=== PATIENT | female | born 1940 | race American Indian/Alaskan Native ===

== ENCOUNTER → 2018-06-29 12:07 | Outpatient (CLI) | payer OTHER, SELFPAY ==
--- NOTE | 2018-06-29 | DI.NM.S_ITS ---
PROCEDURE: NM RAJAT PERF SPECT REST & STR Rest and exercise myocardial perfusion SPECT with gated imaging and ejection fraction RADIOPHARMACEUTICAL: 25.6 mCi Tc-99m sestamibi IV at rest and 26.1 mCi Tc-99m sestamibi IV at peak exercise. A two day-protocol was performed. INDICATIONS: CHEST PAIN TECHNIQUE: Radiopharmaceutical was injected at peak stress test, and also at rest. SPECT images were obtained. SPECT myocardial perfusion images were displayed in short axis, horizontal long axis, and vertical long axis views. Gated images were reviewed using [employer] software. COMPARISON: 10/06/2013. CARDIAC STRESS: A standard Claude treadmill exercise tolerance test was performed by the patient under the supervision of an attending staff. The patient exercised for 5 minutes and 21 seconds reaching 7.0 METs; functional aerobic impairment (DAYA) is -20%. Hemodynamic data: There is normal blood pressure and heart rate response to exercise stress. Patient achieved 91% of maximum predicted heart rate at peak exercise. Symptoms: Patient denied chest pain during exercise. EKG: Baseline ECG shows sinus rhythm with mild (0.5-1mm) horizontal ST depressions in the inferior and anterolateral leads. With treadmill exercise, the ST depressions become moderate (1-2mm) horizontal ST depressions. No ectopy. FINDINGS: Raw data: There is good myocardial labeling by radiotracer. No significant motion artifacts. Left ventricle function: Gated images demonstrate normal left ventricle wall thickening. No segmental wall motion abnormality. No transient ischemic dilation; TID is 0.59 (normal less than 1.3). The left ventricle resting end-diastolic volume is 72 mL. Left ventricle stress ejection fraction is 88%; normal values are above 45%. Myocardial perfusion: There is a fixed basal to mid lateral wall defect that resolves with prone images, suggesting artifact than ischemia or infarction. IMPRESSION: Low risk, normal treadmill nuclear stress test 1) No perfusion evidence of ischemia or infarction. 2) Normal left ventricular size, wall motion, and systolic function (post stress EF 88%). 3) Non-diagnostic ECG due to baseline ST changes. 4) No angina during the stress test. 5) Good exercise tolerance (7.0 METs, DAYA -20%). Target heart rate achieved. Normal blood pressure response to exercise. 6) Compared to the nuclear stress test done 10/06/2013, no significant change. Dictated by: Anson Baxter MD on 06/30/2018 at 15:35 Approved by: Anson Baxter MD on 06/30/2018 at 15:41
--- NOTE | 2018-06-30 13:18 | PM.TREADMILL ---
Cardiac Stress Test Report Referral & Results Date Patient Seen: 06/30/18 Time Patient Seen: 13:18 Requesting provider: Nahed Blanchard Indication: Chest pain/Pressure Rest ECG: Unremarkable Procedure Note: Today following both written and verbal informed consent the patient was exercised according to a standard Claude protocol patient went for a total of 6 min 14 sec achieving a maximum heart rate of 129 maximum systolic blood pressure of 158. This is approximately 7.0 METS. Exercise was terminated at this point because of targets having been met. Patient was also given Cardiolite through a previously started Hep-Lock IV by the nuclear medicine supervisor approximately 1 minute prior to the cessation of exercise. With exercise there was up to about a mm perhaps slightly more initially upsloping then more flat ST segment depression in the inferior leads as well as leads V5 and V6. These persisted into the recovery and became more flat perhaps even downsloping without additional depression Functional aerobic impairment rated at least-20% on the active scale or 120% of normal No dysrhythmias No symptoms Impression: Patient with excellent exercise capacity. There is evidence of ischemia probably as above. Perfusion imaging to be reported separately Please note: Actual ECG tracings can be found in the PACS system.
--- NOTE | 2018-06-30 13:21 | P.PCN_ITS ---
Cardiac Stress Test Report Referral & Results Date Patient Seen: 06/30/18 Time Patient Seen: 13:18 Requesting provider: Nahed Blanchard Indication: Chest pain/Pressure Rest ECG: Unremarkable Procedure Note: Today following both written and verbal informed consent the patient was exercised according to a standard Claude protocol patient went for a total of 6 min 14 sec achieving a maximum heart rate of 129 maximum systolic blood pressure of 158. This is approximately 7.0 METS. Exercise was terminated at this point because of targets having been met. Patient was also given Cardiolite through a previously started Hep-Lock IV by the surveying or spatial science technician approximately 1 minute prior to the cessation of exercise. With exercise there was up to about a mm perhaps slightly more initially upsloping then more flat ST segment depression in the inferior leads as well as leads V5 and V6. These persisted into the recovery and became more flat perhaps even downsloping without additional depression Functional aerobic impairment rated at least-20% on the active scale or 120% of normal No dysrhythmias No symptoms Impression: Patient with excellent exercise capacity. There is evidence of ischemia probably as above. Perfusion imaging to be reported separately Please note: Actual ECG tracings can be found in the PACS system.
== END ==
PROVIDERS: PCP Internal Medicine; Visit Provider Internal Medicine
DX: R07.9 Chest pain, unspecified (principal)
CPT/HCPCS: 78452; 93016; 93017; 93018; A9502

== ENCOUNTER 2024-08-18 09:00 | Outpatient (RCR) | payer OTHER, SELFPAY ==
--- NOTE | 2024-04-27 12:54 | PT.OIE ---
Current Diagnoses Mixed incontinence (04/26/24) Cystocele, midline (04/26/24) Pelvic muscle wasting (04/26/24) Postmenopausal atrophic vaginitis (04/26/24) Visit Care Team Role Provider Type Nahed Zuniga MD Family Provider Non-Staff Primary Care Provider Specialty: Internal Medicine Address: [address] [place] [address], [phone] Email: Wilson Cardenas MD Attending Provider Non-Staff Referring Provider Specialty: Urology Address: [address] [place] [address], [id number] Email: Physical Therapy Initial Evaluation PT-OP-A Visit Information Start: 04/26/24 09:49 Freq: Status: Active Protocol: Document 04/26/24 09:51 [facility] (Rec: 04/26/24 10:07 [facility] [id number]) Out-Patient Physical Therapy Visit Information Visit Information Visit Type Initial Evaluation Visit Start Time 09:45 Visit Stop Time 10:30 Visit Number 1 Evaluation Information Evaluation Date 04/26/24 PT-OP-B Current Condition Start: 04/26/24 09:49 Freq: Status: Active Protocol: Document 04/26/24 09:45 [facility] (Rec: 04/26/24 10:07 [facility] [id number]) Current Condition History of Current Condition Current Complaints pelvic pain History of Current Condition hx of colon cancer in the ascending colon and surgery in 2018 with removal of a section. and symptoms of rectocele started before then. She has had a surgery with mesh for rectocele in 2003 approx 5 months ago she had episodes of constipation lasting approx 4 days and felt as if it affected the mesh. She has discomfort right above the pubic bone when she lays down. Hx of left sided hernia repairs. She also has a scar on the left from a fall when she was 8 where she fell on a log and wood went into her left pelvis. She does feel that when she takes a pill to reduce gas and this also helps her pain. She also chews a tums and this helps. She is a type 6 stool and she goes many times per day. Hx of 2 vaginal deliveries. PT-OP-C Subjective Start: 04/26/24 09:49 Freq: Status: Active Protocol: Document 04/26/24 09:45 [facility] (Rec: 04/27/24 12:31 [facility] [id number]) Patient Questionnaires Pelvic Floor Distress Inventory Questionnaire (PFDI- SF20) Pelvic Floor Score 17 PT-OP-F Manual Assessment Start: 04/26/24 09:49 Freq: Status: Active Protocol: Document 04/26/24 09:45 [facility] (Rec: 04/26/24 13:41 [facility] [id number]) Manual Assessments Soft Tissue Assessment Soft Tissue Mobility Assessment left side abdominal wall over the descending colon and mid suprapubic fascia there is a great amount of scar tissue from previous surgeries. Tenderness is noted over the distal descending colon PT-OP-I Pelvic Floor Start: 04/26/24 09:49 Freq: Status: Active Protocol: Document 04/26/24 09:45 [facility] (Rec: 04/26/24 13:41 [facility] [id number]) Pelvic Floor Assessment Urine Pelvic Floor Surgery Yes Urinary Symptoms Falling Out Feeling/Heavy,Pain Other Urinary Symptoms PELVIC PAIN WHILE LAYING SUPINE AND IRRITATION THAT CAUSES HER TO WAKE TO VOID APPROX five times per night Leakage Size Small Leakage Cause Cough,Exercise,Sneeze Voiding Frequency ten Nocturia five Bowel Bowel Surgery Yes: ascending colon resection Bowel Symptoms Pain Other Bowel Symptoms pain in the lower left abdominal wall when laying supine Bowel Movement Frequency multiple times per day [place] Stool Chart Type 1-7 6 Pelvic Clock Pelvic Clock 12-3 Atrophy Pelvic Clock 3-6 Atrophy Pelvic Clock 6-9 Atrophy Pelvic Clock 9-12 Atrophy Prolapse Cystocele Grade 2 Contraction Ability Voluntary Contraction Moderate Voluntary Relaxation Moderate Manual Muscle Testing Left 3 Manual Muscle Testing Right 3 Manual Muscle Testing Anterior 3 Manual Muscle Testing Posterior 3 Muscle Endurance (Seconds) 6 PT-OP-J Posture/Palpation/Skin Start: 04/26/24 09:49 Freq: Status: Active Protocol: Document 04/26/24 09:45 [facility] (Rec: 04/26/24 13:41 [facility] [id number]) Palpation Assessment Location left lower abdominal wall Palpation Findings Soft Tissue Tightness, Tenderness Palpation Details tenderness over the distal descending colon, scar tissue tightness and decreased fascial mobility of the left lower abdominal wall PT-OP-Q Treatments Start: 04/26/24 09:49 Freq: Status: Active Protocol: Document 04/26/24 09:45 [facility] (Rec: 04/26/24 12:20 [facility] [id number]) Therapeutic Exercises Supine Exercises pelvic floor long holds Side bilateral Reps/Minutes 10 reps holding 10 seconds and relaxing 10 seconds Manual Therapy Treatment Soft Tissue Mobilization MFR over the descending colon Mobilization Type Myofascial Release Intensity/Depth Superficial Body Position Hooklying Comments tenderness left side of descending colon and pt notes afterwards she feels as she needs to have a bowel movement Self-Care/Home Management Treatment Activities Self-Care/Home Management Activities Yenni was educated in ILU self massage over the colon PT-OP-T Assessment and Plan Start: 04/26/24 09:49 Freq: Status: Active Protocol: Document 04/26/24 09:45 [facility] (Rec: 04/26/24 13:41 [facility] [id number]) Physical Therapy Assessment Rehab Potential Rehabilitation Potential Good Evaluation Complexity Number of Personal Factors/Comorbidities 0 Number of Body Systems Impaired 1-2 Clinical Presentation at Evaluation Stable Impairments Impairments Activity Tolerance,Functional Activities,Functional Mobility ,Pain,Soft Tissue Mobility, Strength Other Impairments urinary stress incontinence pelvic pain Goals 4 Impairment Decreased pelvic floor endurance Short Term Goal (STG) Yenni is able to sustain a pelvic floor contraction in supine x 10 seconds STG Duration 5 weeks Hydrometeorological Technician Goal (LTG) Yenni is able to sustain a pelvic floor contraction in standing x 5 seconds LTG Duration 12 weeks 3 Impairment nocturia with pt waking up 5 times per night to void Hydrometeorological Technician Goal (LTG) Yenni is able to decrease the number of voids per night to 2 or less LTG Duration 12 weeks 2 Impairment urinary stress incontinence Short Term Goal (STG) Yenni is educated on a home exercise program for pelvic floor strengtheing STG Duration 4 weeks Hydrometeorological Technician Goal (LTG) Yenni reports a overall reduction of urinary stress incontinence 1 Impairment Yenni reports c/o pelvic pain worse with laying supine and she is unable to sleep comfortably due to this pain and reports pelvic heaviness with standing Mcc Goal (LTG) Yenni reports she has a overall reduction in pelvic pain and sleep is no longer disturbed due to pain LTG Duration 12 weeks Assessment Summary Assessment Yenni is a 84 year old female referred to PT with mixed incontinence and vaginal wall prolapse with cystocele midline. She has chief complaints of lower abdominal discomfort when laying down. She has a history of abdominal surgeries including a resection of the ascending colon due to colon cancer in 2018, rectocele repair with mesh in 2004, and a surgery to remove splinters that were lodged in her left side abdominal wall when she fell as a young child. Yenni reports approximately 5 months ago she suffered a bout of constipation. She found herself straining for bowel movements. This lasted 4 days and after this is when she started noting pelvic discomfort as well as pelvic pain when laying down predominately on the left side of the lower abdominal wall and pelvis as well as above the pubic bone. Yenni reports she did start working on pelvic floor exercises and she does 40 per day. She feels this has been helping and her symptoms are not as severe as they were a few months ago. She does also suffer from nocturia and reports she wakes up 5 times per night to void. With exam there is a great amount of scar tissue over the left lower abdominal wall and over the suprapubic fascia. Tenderness is reproduced when palpating over the descending colon on the left side of the abdominal wall. Yenni is able to properly contract her pelvic floor but does lack the ability to sustain a pelvic floor contraction. She is a good candidate for pelvic floor endurance training and strengthening as well as manual therapy techniques for the abdominal to decrease tenderness. Physical Therapy Plan Frequency and Duration Frequency of Treatment 1x/Week Duration of treatment (weeks) 8 Plan of Care Start Date 04/26/24 Plan of Care End Date 06/21/24 Therapeutic Interventions Therapeutic Interventions Home Exercise Program, Neuromuscular Re-education, Patient/Caregiver Education, Self-Care/Home Management,Soft Tissue Mobilization, Therapeutic Exercises Modalities Biofeedback Next Visit Focus/Plan Next Note Type Treatment Note Next Visit Plan pelvic floor endurance training with EMG biofeedback, manual therapy techniques working on the suprapubic fascia and over the descending colon, stretches for the hips
--- NOTE | 2024-04-27 12:54 | PT.OPPOC ---
Physical, Occupational & Speech Therapy At [facility] Current Diagnoses Mixed incontinence (04/26/24) Cystocele, midline (04/26/24) Pelvic muscle wasting (04/26/24) Postmenopausal atrophic vaginitis (04/26/24) Visit Care Team Role Provider Type Nahed Zuniga MD Family Provider Non-Staff Primary Care Provider Specialty: Internal Medicine Address: [address] [place] [address], [phone] Email: Wilson Cardenas MD Attending Provider Non-Staff Referring Provider Specialty: Urology Address: [address] [place] [address], [phone] Email: Plan Of Care PT-OP-T Assessment and Plan Start: 04/26/24 09:49 Freq: Status: Active Protocol: Document 04/26/24 09:45 [facility] (Rec: 04/26/24 13:41 [facility] [id number]) Physical Therapy Assessment Rehab Potential Rehabilitation Potential Good Evaluation Complexity Number of Personal Factors/Comorbidities 0 Number of Body Systems Impaired 1-2 Clinical Presentation at Evaluation Stable Impairments Impairments Activity Tolerance,Functional Activities,Functional Mobility ,Pain,Soft Tissue Mobility, Strength Other Impairments urinary stress incontinence pelvic pain Goals 4 Impairment Decreased pelvic floor endurance Short Term Goal (STG) Yenni is able to sustain a pelvic floor contraction in supine x 10 seconds STG Duration 5 weeks Long-Term Goal (LTG) Yenni is able to sustain a pelvic floor contraction in standing x 5 seconds LTG Duration 12 weeks 3 Impairment nocturia with pt waking up 5 times per night to void Long-Term Goal (LTG) Yenni is able to decrease the number of voids per night to 2 or less LTG Duration 12 weeks 2 Impairment urinary stress incontinence Short Term Goal (STG) Yenni is educated on a home exercise program for pelvic floor strengthening STG Duration 4 weeks Long-Term Goal (LTG) Yenni reports a overall reduction of urinary stress incontinence 1 Impairment Yenni reports c/o pelvic pain worse with laying supine and she is unable to sleep comfortably due to this pain and reports pelvic heaviness with standing State Archivist Goal (LTG) Yenni reports she has a overall reduction in pelvic pain and sleep is no longer disturbed due to pain LTG Duration 12 weeks Assessment Summary Assessment Yenni is a 84 year old female referred to PT with mixed incontinence and vaginal wall prolapse with cystocele midline. She has chief complaints of lower abdominal discomfort when laying down. She has a history of abdominal surgeries including a resection of the ascending colon due to colon cancer in 2018, rectocele repair with mesh in 2004, and a surgery to remove splinters that were lodged in her left side abdominal wall when she fell as a young child. Yenni reports approximately 5 months ago she suffered a bout of constipation. She found herself straining for bowel movements. This lasted 4 days and after this is when she started noting pelvic discomfort as well as pelvic pain when laying down predominately on the left side of the lower abdominal wall and pelvis as well as above the pubic bone. Yenni reports she did start working on pelvic floor exercises and she does 40 per day. She feels this has been helping and her symptoms are not as severe as they were a few months ago. She does also suffer from nocturia and reports she wakes up 5 times per night to void. With exam there is a great amount of scar tissue over the left lower abdominal wall and over the suprapubic fascia. Tenderness is reproduced when palpating over the descending colon on the left side of the abdominal wall. Yenni is able to properly contract her pelvic floor but does lack the ability to sustain a pelvic floor contraction. She is a good candidate for pelvic floor endurance training and strengthening as well as manual therapy techniques for the abdominal to decrease tenderness. Physical Therapy Plan Frequency and Duration Frequency of Treatment 1x/Week Duration of treatment (weeks) 8 Plan of Care Start Date 04/26/24 Plan of Care End Date 06/21/24 Therapeutic Interventions Therapeutic Interventions Home Exercise Program, Neuromuscular Re-education, Patient/Caregiver Education, Self-Care/Home Management,Soft Tissue Mobilization, Therapeutic Exercises Modalities Biofeedback Next Visit Focus/Plan Next Note Type Treatment Note Next Visit Plan pelvic floor endurance training with EMG biofeedback, manual therapy techniques working on the suprapubic fascia and over the descending colon, stretches for the hips Plan of Care Dates Plan of Care Start Date 04/26/24 Plan of Care End Date 06/21/24 Electronically Signed by: Fifi Blackman, PT 04/27/24 [id number] If you are in agreement with this Plan of Care, please return a signed and dated copy. I have reviewed this Plan of Care and certify that the skilled therapy services above are required to meet the patient?s needs. Physician Signature Date Printed Name and Credentials Clinical Instructor Signature Printed Name and Credentials
--- NOTE | 2024-05-04 12:01 | PT.OTN ---
Current Diagnoses Mixed incontinence (05/04/24) Cystocele, midline (05/04/24) Pelvic muscle wasting (05/04/24) Postmenopausal atrophic vaginitis (05/04/24) Physical Therapy Treatment Note PT-OP-A Visit Information Start: 04/26/24 09:49 Freq: Status: Active Protocol: Document 05/04/24 08:19 [facility] (Rec: 05/04/24 09:03 [facility] [id number]) Out-Patient Physical Therapy Visit Information Visit Information Visit Type Treatment Note Visit Note pt got lost on way here and is 15 min late Visit Start Time 08:30 Visit Stop Time 09:00 Visit Number 2 PT-OP-B Current Condition Start: 04/26/24 09:49 Freq: Status: Active Protocol: Document 04/26/24 09:45 [facility] (Rec: 04/26/24 10:07 [facility] [id number]) Current Condition History of Current Condition Current Complaints pelvic pain History of Current Condition hx of colon cancer in the ascending colon and surgery in 2018 with removal of a section. and symptoms of rectocele started before then. She has had a surgery with mesh for rectocele in 2003 approx 5 months ago she had episodes of constipation lasting approx 4 days and felt as if it affected the mesh. She has discomfort right above the pubic bone when she lays down. Hx of left sided hernia repairs. She also has a scar on the left from a fall when she was 8 where she fell on a log and wood went into her left pelvis. She does feel that when she takes a pill to reduce gas and this also helps her pain. She also chews a tums and this helps. She is a type 6 stool and she goes many times per day. Hx of 2 vaginal deliveries. PT-OP-C Subjective Start: 04/26/24 09:49 Freq: Status: Active Protocol: Document 05/04/24 11:50 [facility] (Rec: 05/04/24 11:53 [facility] [id number]) OP-PT Subjective Patient Comments Patient Comments Yenni reports she is doing better with her pelvic floor strength and hasn't been experiencing the leakage. She still feels the abdominal discomfort more on the left side and especially when laying down. She has been trying the ILU self massage at home Patient Reported Progress Improving PT-OP-F Manual Assessment Start: 04/26/24 09:49 Freq: Status: Active Protocol: Document 04/26/24 09:45 [facility] (Rec: 04/26/24 13:41 [facility] [id number]) Manual Assessments Soft Tissue Assessment Soft Tissue Mobility Assessment left side abdominal wall over the descending colon and mid suprapubic fascia there is a great amount of scar tissue from previous surgeries. Tenderness is noted over the distal descending colon PT-OP-I Pelvic Floor Start: 04/26/24 09:49 Freq: Status: Active Protocol: Document 04/26/24 09:45 [facility] (Rec: 04/26/24 13:41 [facility] [id number]) Pelvic Floor Assessment Urine Pelvic Floor Surgery Yes Urinary Symptoms Falling Out Feeling/Heavy,Pain Other Urinary Symptoms PELVIC PAIN WHILE LAYING SUPINE AND IRRITATION THAT CAUSES HER TO WAKE TO VOID APPROX five times per night Leakage Size Small Leakage Cause Cough,Exercise,Sneeze Voiding Frequency ten Nocturia five Bowel Bowel Surgery Yes: ascending colon resection Bowel Symptoms Pain Other Bowel Symptoms pain in the lower left abdominal wall when laying supine Bowel Movement Frequency multiple times per day [place] Stool Chart Type 1-7 6 Pelvic Clock Pelvic Clock 12-3 Atrophy Pelvic Clock 3-6 Atrophy Pelvic Clock 6-9 Atrophy Pelvic Clock 9-12 Atrophy Prolapse Cystocele Grade 2 Contraction Ability Voluntary Contraction Moderate Voluntary Relaxation Moderate Manual Muscle Testing Left 3 Manual Muscle Testing Right 3 Manual Muscle Testing Anterior 3 Manual Muscle Testing Posterior 3 Muscle Endurance (Seconds) 6 PT-OP-J Posture/Palpation/Skin Start: 04/26/24 09:49 Freq: Status: Active Protocol: Document 04/26/24 09:45 [facility] (Rec: 04/26/24 13:41 [facility] [id number]) Palpation Assessment Location left lower abdominal wall Palpation Findings Soft Tissue Tightness, Tenderness Palpation Details tenderness over the distal descending colon, scar tissue tightness and decreased fascial mobility of the left lower abdominal wall PT-OP-Q Treatments Start: 04/26/24 09:49 Freq: Status: Active Protocol: Document 05/04/24 11:50 [facility] (Rec: 05/04/24 11:53 [facility] [id number]) Therapeutic Exercises Supine Exercises pelvic floor long holds Side bilateral Reps/Minutes 10 reps holding 10 seconds and relaxing 10 seconds Other Exercises sumo squats with hip turning sander operator Other Exercise Name counter top support Reps/Minutes x 10 reps sit-stand with pelvic floor engagement Reps/Minutes x 10 reps Comments cues to engage TA and pelvic floor on the way up standing squats at counter top Reps/Minutes 2 x 10 reps Manual Therapy Treatment Soft Tissue Mobilization scar tissue massage over the central and left abdominal wall Intensity/Depth Moderate Body Position Supine Comments worked on scar tissue massage over the left and central abdominal wall and educated pt in self scar tissue mobilization MFR over the descending colon Mobilization Type Myofascial Release Intensity/Depth Superficial Body Position Hooklying PT-OP-T Assessment and Plan Start: 04/26/24 09:49 Freq: Status: Active Protocol: Document 05/04/24 08:19 [facility] (Rec: 05/04/24 09:03 [facility] [id number]) Physical Therapy Assessment Goals 4 Impairment Decreased pelvic floor endurance Short Term Goal (STG) Yenni is able to sustain a pelvic floor contraction in supine x 10 seconds STG Duration 5 weeks Intermediate Goal (LTG) Yenni is able to sustain a pelvic floor contraction in standing x 5 seconds LTG Duration 12 weeks 3 Impairment nocturia with pt waking up 5 times per night to void Kraft Digester Operator Goal (LTG) Yenni is able to decrease the number of voids per night to 2 or less LTG Duration 12 weeks 2 Impairment urinary stress incontinence Short Term Goal (STG) Yenni is educated on a home exercise program for pelvic floor strengtheing STG Duration 4 weeks Intermediate Goal (LTG) Yenni reports a overall reduction of urinary stress incontinence 1 Impairment Yenni reports c/o pelvic pain worse with laying supine and she is unable to sleep comfortably due to this pain and reports pelvic heaviness with standing Kraft Digester Operator Goal (LTG) Yenni reports she has a overall reduction in pelvic pain and sleep is no longer disturbed due to pain LTG Duration 12 weeks Assessment Summary Assessment Yenni was late to her appt today due to getting lost so we did not get as many things done but I did work on MFR and scar tissue release over the left side of the abdominal wall and over her scar tissue lower left abdominal wall. She has been doing the self ILU massage at home. Leakage has been decreasing. She is still waking up at night approx 5 times as she feels the abdominal discomfort and needs to empty her bladder at night. She would like to progress to dynamic strengthening exercises she can do at home. We started sit-stand and standing squats with hands on the countertop today for a HEP and Yenni did well with these. Physical Therapy Plan Frequency and Duration Frequency of Treatment 1x/Week Duration of treatment (weeks) 8 Plan of Care Start Date 04/26/24 Plan of Care End Date 06/21/24 Therapeutic Interventions Therapeutic Interventions Home Exercise Program, Neuromuscular Re-education, Patient/Caregiver Education, Self-Care/Home Management,Soft Tissue Mobilization, Therapeutic Exercises Modalities Biofeedback Next Visit Focus/Plan Next Note Type Treatment Note Next Visit Plan continue with MFR and scar tissue release techniques over the abdominal wall, pelvic floor strenghtening, hip and core strengthening exercises.
--- NOTE | 2024-05-11 10:28 | PT.OTN ---
Current Diagnoses Mixed incontinence (05/11/24) Cystocele, midline (05/11/24) Pelvic muscle wasting (05/11/24) Postmenopausal atrophic vaginitis (05/11/24) Physical Therapy Treatment Note PT-OP-A Visit Information Start: 04/26/24 09:49 Freq: Status: Active Protocol: Document 05/11/24 08:19 [facility] (Rec: 05/11/24 09:03 [facility] [id number]) Out-Patient Physical Therapy Visit Information Visit Information Visit Type Progress Note Visit Start Time 08:20 Visit Stop Time 09:00 Visit Number 3 Evaluation Information Evaluation Date 04/26/24 PT-OP-B Current Condition Start: 04/26/24 09:49 Freq: Status: Active Protocol: Document 04/26/24 09:45 [facility] (Rec: 04/26/24 10:07 [facility] [id number]) Current Condition History of Current Condition Current Complaints pelvic pain History of Current Condition hx of colon cancer in the ascending colon and surgery in 2018 with removal of a section. and symptoms of rectocele started before then. She has had a surgery with mesh for rectocele in 2003 approx 5 months ago she had episodes of constipation lasting approx 4 days and felt as if it affected the mesh. She has discomfort right above the pubic bone when she lays down. Hx of left sided hernia repairs. She also has a scar on the left from a fall when she was 8 where she fell on a log and wood went into her left pelvis. She does feel that when she takes a pill to reduce gas and this also helps her pain. She also chews a tums and this helps. She is a type 6 stool and she goes many times per day. Hx of 2 vaginal deliveries. PT-OP-C Subjective Start: 04/26/24 09:49 Freq: Status: Active Protocol: Document 05/11/24 08:19 [facility] (Rec: 05/11/24 09:03 [facility] [id number]) OP-PT Subjective Patient Comments Patient Comments pt notes she isn't having as much abdominal pain now, she had one leak this week approx 1/2 teaspoon which is improvement still waking up 5 times per night to void Patient Reported Progress Improving PT-OP-F Manual Assessment Start: 04/26/24 09:49 Freq: Status: Active Protocol: Document 04/26/24 09:45 [facility] (Rec: 04/26/24 13:41 [facility] [id number]) Manual Assessments Soft Tissue Assessment Soft Tissue Mobility Assessment left side abdominal wall over the descending colon and mid suprapubic fascia there is a great amount of scar tissue from previous surgeries. Tenderness is noted over the distal descending colon PT-OP-I Pelvic Floor Start: 04/26/24 09:49 Freq: Status: Active Protocol: Document 04/26/24 09:45 [facility] (Rec: 04/26/24 13:41 [facility] [id number]) Pelvic Floor Assessment Urine Pelvic Floor Surgery Yes Urinary Symptoms Falling Out Feeling/Heavy,Pain Other Urinary Symptoms PELVIC PAIN WHILE LAYING SUPINE AND IRRITATION THAT CAUSES HER TO WAKE TO VOID APPROX five times per night Leakage Size Small Leakage Cause Cough,Exercise,Sneeze Voiding Frequency ten Nocturia five Bowel Bowel Surgery Yes: ascending colon resection Bowel Symptoms Pain Other Bowel Symptoms pain in the lower left abdominal wall when laying supine Bowel Movement Frequency multiple times per day [place] Stool Chart Type 1-7 6 Pelvic Clock Pelvic Clock 12-3 Atrophy Pelvic Clock 3-6 Atrophy Pelvic Clock 6-9 Atrophy Pelvic Clock 9-12 Atrophy Prolapse Cystocele Grade 2 Contraction Ability Voluntary Contraction Moderate Voluntary Relaxation Moderate Manual Muscle Testing Left 3 Manual Muscle Testing Right 3 Manual Muscle Testing Anterior 3 Manual Muscle Testing Posterior 3 Muscle Endurance (Seconds) 6 PT-OP-J Posture/Palpation/Skin Start: 04/26/24 09:49 Freq: Status: Active Protocol: Document 04/26/24 09:45 [facility] (Rec: 04/26/24 13:41 [facility] [id number]) Palpation Assessment Location left lower abdominal wall Palpation Findings Soft Tissue Tightness, Tenderness Palpation Details tenderness over the distal descending colon, scar tissue tightness and decreased fascial mobility of the left lower abdominal wall PT-OP-Q Treatments Start: 04/26/24 09:49 Freq: Status: Active Protocol: Document 05/11/24 08:19 [facility] (Rec: 05/11/24 09:03 [facility] [id number]) Therapeutic Exercises Supine Exercises ball squeeze with bridge Reps/Minutes 2x 10 reps hip ER with theraband Equipment Used level 3 theraband Reps/Minutes 2 x 10 reps pelvic floor long holds Side bilateral Reps/Minutes 10 reps holding 10 seconds and relaxing 10 seconds Other Exercises standing chest stretch Reps/Minutes hold 30 sec each side warrior 1 stretch Reps/Minutes holding 30 sec each side x 2 sumo squats with hip sheet turner Other Exercise Name counter top support Reps/Minutes x 10 reps sit-stand with pelvic floor engagement Reps/Minutes x 10 reps Comments cues to engage TA and pelvic floor on the way up standing squats at counter top Reps/Minutes 2 x 10 reps PT-OP-T Assessment and Plan Start: 04/26/24 09:49 Freq: Status: Active Protocol: Document 05/11/24 08:19 [facility] (Rec: 05/11/24 09:03 [facility] [id number]) Physical Therapy Assessment Goals 4 Impairment Decreased pelvic floor endurance Short Term Goal (STG) Yenni is able to sustain a pelvic floor contraction in supine x 10 seconds goal met STG Duration 5 weeks Shoe Dresser Goal (LTG) Yenni is able to sustain a pelvic floor contraction in standing x 5 seconds working towards goal LTG Duration 12 weeks 3 Impairment nocturia with pt waking up 5 times per night to void Half-Way Goal (LTG) Yenni is able to decrease the number of voids per night to 2 or less no change LTG Duration 12 weeks 2 Impairment urinary stress incontinence Short Term Goal (STG) Yenni is educated on a home exercise program for pelvic floor strengtheing good progress STG Duration 4 weeks Half-Way Goal (LTG) Yenni reports a overall reduction of urinary stress incontinence some progress 1 Impairment Yenni reports c/o pelvic pain worse with laying supine and she is unable to sleep comfortably due to this pain and reports pelvic heaviness with standing Half-Way Goal (LTG) Yenni reports she has a overall reduction in pelvic pain and sleep is no longer disturbed due to pain. Yenni reports this is improving and it is her bladder waking her up more now than pelvic pain at night LTG Duration 12 weeks Progress Towards Goals Progress Towards Goals Progressing Toward Goals Assessment Summary Assessment Yenni is doing well with her exercises in the clinic. 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 I added in warrior 1 with wall support to open up the hip flexors as well as anterior chest stetches as she tends to lean forward which can place pressure on her bladder. Her pelvic pain across the abdominal wall is decreaseing and she wasn't as tender today with MFR techniques. She isn't concerned about the 5 times waking at night and she reports she is able to void every 2.5-3 hours during the day. It may help to educate her on the urge deference technique for night time as I told her 5 times is more than average. She would benefit from continued PT Physical Therapy Plan Frequency and Duration Frequency of Treatment 1x/Week Duration of treatment (weeks) 8 Plan of Care Start Date 04/26/24 Plan of Care End Date 06/21/24 Therapeutic Interventions Therapeutic Interventions Home Exercise Program, Neuromuscular Re-education, Patient/Caregiver Education, Self-Care/Home Management,Soft Tissue Mobilization, Therapeutic Exercises Modalities Biofeedback Next Visit Focus/Plan Next Note Type Treatment Note Next Visit Plan educate Yenni in the urge deference technique and bladder retraining, review exercises next visit and assess abdominal wall discomfort and MFR technqiques over the lower left abdominal wall.
--- NOTE | 2024-05-11 10:29 | PT.OTN ---
Current Diagnoses Mixed incontinence (05/11/24) Cystocele, midline (05/11/24) Pelvic muscle wasting (05/11/24) Postmenopausal atrophic vaginitis (05/11/24) Physical Therapy Treatment Note PT-OP-A Visit Information Start: 04/26/24 09:49 Freq: Status: Active Protocol: Document 05/11/24 08:19 [facility] (Rec: 05/11/24 09:03 [facility] [id number]) Out-Patient Physical Therapy Visit Information Visit Information Visit Type Progress Note Visit Start Time 08:20 Visit Stop Time 09:00 Visit Number 3 Evaluation Information Evaluation Date 04/26/24 PT-OP-B Current Condition Start: 04/26/24 09:49 Freq: Status: Active Protocol: Document 04/26/24 09:45 [facility] (Rec: 04/26/24 10:07 [facility] [id number]) Current Condition History of Current Condition Current Complaints pelvic pain History of Current Condition hx of colon cancer in the ascending colon and surgery in 2018 with removal of a section. and symptoms of rectocele started before then. She has had a surgery with mesh for rectocele in 2003 approx 5 months ago she had episodes of constipation lasting approx 4 days and felt as if it affected the mesh. She has discomfort right above the pubic bone when she lays down. Hx of left sided hernia repairs. She also has a scar on the left from a fall when she was 8 where she fell on a log and wood went into her left pelvis. She does feel that when she takes a pill to reduce gas and this also helps her pain. She also chews a tums and this helps. She is a type 6 stool and she goes many times per day. Hx of 2 vaginal deliveries. PT-OP-C Subjective Start: 04/26/24 09:49 Freq: Status: Active Protocol: Document 05/11/24 08:19 [facility] (Rec: 05/11/24 09:03 [facility] [id number]) OP-PT Subjective Patient Comments Patient Comments pt notes she isn't having as much abdominal pain now, she had one leak this week approx 1/2 teaspoon which is improvement still waking up 5 times per night to void Patient Reported Progress Improving PT-OP-F Manual Assessment Start: 04/26/24 09:49 Freq: Status: Active Protocol: Document 04/26/24 09:45 [facility] (Rec: 04/26/24 13:41 [facility] [id number]) Manual Assessments Soft Tissue Assessment Soft Tissue Mobility Assessment left side abdominal wall over the descending colon and mid suprapubic fascia there is a great amount of scar tissue from previous surgeries. Tenderness is noted over the distal descending colon PT-OP-I Pelvic Floor Start: 04/26/24 09:49 Freq: Status: Active Protocol: Document 04/26/24 09:45 [facility] (Rec: 04/26/24 13:41 [facility] [id number]) Pelvic Floor Assessment Urine Pelvic Floor Surgery Yes Urinary Symptoms Falling Out Feeling/Heavy,Pain Other Urinary Symptoms PELVIC PAIN WHILE LAYING SUPINE AND IRRITATION THAT CAUSES HER TO WAKE TO VOID APPROX five times per night Leakage Size Small Leakage Cause Cough,Exercise,Sneeze Voiding Frequency ten Nocturia five Bowel Bowel Surgery Yes: ascending colon resection Bowel Symptoms Pain Other Bowel Symptoms pain in the lower left abdominal wall when laying supine Bowel Movement Frequency multiple times per day [place] Stool Chart Type 1-7 6 Pelvic Clock Pelvic Clock 12-3 Atrophy Pelvic Clock 3-6 Atrophy Pelvic Clock 6-9 Atrophy Pelvic Clock 9-12 Atrophy Prolapse Cystocele Grade 2 Contraction Ability Voluntary Contraction Moderate Voluntary Relaxation Moderate Manual Muscle Testing Left 3 Manual Muscle Testing Right 3 Manual Muscle Testing Anterior 3 Manual Muscle Testing Posterior 3 Muscle Endurance (Seconds) 6 PT-OP-J Posture/Palpation/Skin Start: 04/26/24 09:49 Freq: Status: Active Protocol: Document 04/26/24 09:45 [facility] (Rec: 04/26/24 13:41 [facility] [id number]) Palpation Assessment Location left lower abdominal wall Palpation Findings Soft Tissue Tightness, Tenderness Palpation Details tenderness over the distal descending colon, scar tissue tightness and decreased fascial mobility of the left lower abdominal wall PT-OP-Q Treatments Start: 04/26/24 09:49 Freq: Status: Active Protocol: Document 05/11/24 08:19 [facility] (Rec: 05/11/24 09:03 [facility] [id number]) Therapeutic Exercises Supine Exercises ball squeeze with bridge Reps/Minutes 2x 10 reps hip ER with theraband Equipment Used level 3 theraband Reps/Minutes 2 x 10 reps pelvic floor long holds Side bilateral Reps/Minutes 10 reps holding 10 seconds and relaxing 10 seconds Other Exercises standing chest stretch Reps/Minutes hold 30 sec each side warrior 1 stretch Reps/Minutes holding 30 sec each side x 2 sumo squats with hip glove turner Other Exercise Name counter top support Reps/Minutes x 10 reps sit-stand with pelvic floor engagement Reps/Minutes x 10 reps Comments cues to engage TA and pelvic floor on the way up standing squats at counter top Reps/Minutes 2 x 10 reps PT-OP-T Assessment and Plan Start: 04/26/24 09:49 Freq: Status: Active Protocol: Document 05/11/24 08:19 [facility] (Rec: 05/11/24 09:03 [facility] [id number]) Physical Therapy Assessment Goals 4 Impairment Decreased pelvic floor endurance Short Term Goal (STG) Yenni is able to sustain a pelvic floor contraction in supine x 10 seconds goal met STG Duration 5 weeks Diamond Selector Goal (LTG) Yenni is able to sustain a pelvic floor contraction in standing x 5 seconds working towards goal LTG Duration 12 weeks 3 Impairment nocturia with pt waking up 5 times per night to void Retirement Goal (LTG) Yenni is able to decrease the number of voids per night to 2 or less no change LTG Duration 12 weeks 2 Impairment urinary stress incontinence Short Term Goal (STG) Yenni is educated on a home exercise program for pelvic floor strengtheing good progress STG Duration 4 weeks Retirement Goal (LTG) Yenni reports a overall reduction of urinary stress incontinence some progress 1 Impairment eYnni reports c/o pelvic pain worse with laying supine and she is unable to sleep comfortably due to this pain and reports pelvic heaviness with standing Retirement Goal (LTG) Yenni reports she has a overall reduction in pelvic pain and sleep is no longer disturbed due to pain. Yenni reports this is improving and it is her bladder waking her up more now than pelvic pain at night LTG Duration 12 weeks Progress Towards Goals Progress Towards Goals Progressing Toward Goals Assessment Summary Assessment Yenni is doing well with her exercises in the clinic. 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 I added in warrior 1 with wall support to open up the hip flexors as well as anterior chest stetches as she tends to lean forward which can place pressure on her bladder. Her pelvic pain across the abdominal wall is decreaseing and she wasn't as tender today with MFR techniques. She isn't concerned about the 5 times waking at night and she reports she is able to void every 2.5-3 hours during the day. It may help to educate her on the urge deference technique for night time as I told her 5 times is more than average. She would benefit from continued PT Physical Therapy Plan Frequency and Duration Frequency of Treatment 1x/Week Duration of treatment (weeks) 8 Plan of Care Start Date 05/11/24 Plan of Care End Date 07/06/24 Therapeutic Interventions Therapeutic Interventions Home Exercise Program, Neuromuscular Re-education, Patient/Caregiver Education, Self-Care/Home Management,Soft Tissue Mobilization, Therapeutic Exercises Modalities Biofeedback Next Visit Focus/Plan Next Note Type Treatment Note Next Visit Plan educate Yenni in the urge deference technique and bladder retraining, review exercises next visit and assess abdominal wall discomfort and MFR technqiques over the lower left abdominal wall.
--- NOTE | 2024-05-11 10:30 | PT.OPPOC ---
Physical, Occupational & Speech Therapy At [facility] Current Diagnoses Mixed incontinence (05/11/24) Cystocele, midline (05/11/24) Pelvic muscle wasting (05/11/24) Postmenopausal atrophic vaginitis (05/11/24) Visit Care Team Role Provider Type Nahed Zuniga MD Family Provider Non-Staff Primary Care Provider Specialty: Internal Medicine Address: [address] [place] [address], [phone] Email: Wilson Cardenas MD Attending Provider Non-Staff Referring Provider Specialty: Urology Address: [address] [place] [address], [id number] Email: Plan Of Care PT-OP-T Assessment and Plan Start: 04/26/24 09:49 Freq: Status: Active Protocol: Document 05/11/24 08:19 [facility] (Rec: 05/11/24 09:03 [facility] [id number]) Physical Therapy Assessment Goals 4 Impairment Decreased pelvic floor endurance Short Term Goal (STG) Yenni is able to sustain a pelvic floor contraction in supine x 10 seconds goal met STG Duration 5 weeks Intermediate Goal (LTG) Yenni is able to sustain a pelvic floor contraction in standing x 5 seconds working towards goal LTG Duration 12 weeks 3 Impairment nocturia with pt waking up 5 times per night to void Intermediate Goal (LTG) Yenni is able to decrease the number of voids per night to 2 or less no change LTG Duration 12 weeks 2 Impairment urinary stress incontinence Short Term Goal (STG) Yenni is educated on a home exercise program for pelvic floor strengtheing good progress STG Duration 4 weeks Intermediate Goal (LTG) Yenni reports a overall reduction of urinary stress incontinence some progress 1 Impairment Yenni reports c/o pelvic pain worse with laying supine and she is unable to sleep comfortably due to this pain and reports pelvic heaviness with standing Sidewalk Repairer Goal (LTG) Yenni reports she has a overall reduction in pelvic pain and sleep is no longer disturbed due to pain. Yenni reports this is improving and it is her bladder waking her up more now than pelvic pain at night LTG Duration 12 weeks Progress Towards Goals Progress Towards Goals Progressing Toward Goals Assessment Summary Assessment Yenni is doing well with her exercises in the clinic. 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 I added in warrior 1 with wall support to open up the hip flexors as well as anterior chest stetches as she tends to lean forward which can place pressure on her bladder. Her pelvic pain across the abdominal wall is decreaseing and she wasn't as tender today with MFR techniques. She isn't concerned about the 5 times waking at night and she reports she is able to void every 2.5-3 hours during the day. It may help to educate her on the urge deference technique for night time as I told her 5 times is more than average. She would benefit from continued PT Physical Therapy Plan Frequency and Duration Frequency of Treatment 1x/Week Duration of treatment (weeks) 8 Plan of Care Start Date 05/11/24 Plan of Care End Date 07/06/24 Therapeutic Interventions Therapeutic Interventions Home Exercise Program, Neuromuscular Re-education, Patient/Caregiver Education, Self-Care/Home Management,Soft Tissue Mobilization, Therapeutic Exercises Modalities Biofeedback Next Visit Focus/Plan Next Note Type Treatment Note Next Visit Plan educate Yenni in the urge deference technique and bladder retraining, review exercises next visit and assess abdominal wall discomfort and MFR technqiques over the lower left abdominal wall. Plan of Care Dates Plan of Care Start Date 05/11/24 Plan of Care End Date 07/06/24 Electronically Signed by: Fifi Blackman, PT 05/11/24 2007 If you are in agreement with this Plan of Care, please return a signed and dated copy. I have reviewed this Plan of Care and certify that the skilled therapy services above are required to meet the patient?s needs. Physician Signature Date Printed Name and Credentials Clinical Instructor Signature Printed Name and Credentials
--- NOTE | 2024-06-27 09:05 | PT.OTN ---
Current Diagnoses Mixed incontinence (06/27/24) Cystocele, midline (06/27/24) Pelvic muscle wasting (06/27/24) Postmenopausal atrophic vaginitis (06/27/24) Physical Therapy Treatment Note PT-OP-A Visit Information Start: 04/26/24 09:49 Freq: Status: Active Protocol: Document 06/27/24 08:18 SP (Rec: 06/27/24 09:07 SP [id number]) Out-Patient Physical Therapy Visit Information Visit Information Visit Type Treatment Note Visit Start Time 08:18 Visit Stop Time 09:05 Visit Number 4 Number of MACHINE CRATER Visits 1 Evaluation Information Evaluation Date 04/26/24 PT-OP-B Current Condition Start: 04/26/24 09:49 Freq: Status: Active Protocol: Document 04/26/24 09:45 [facility] (Rec: 04/26/24 10:07 [facility] [id number]) Current Condition History of Current Condition Current Complaints pelvic pain History of Current Condition hx of colon cancer in the ascending colon and surgery in 2018 with removal of a section. and symptoms of rectocele started before then. She has had a surgery with mesh for rectocele in 2003 approx 5 months ago she had episodes of constipation lasting approx 4 days and felt as if it affected the mesh. She has discomfort right above the pubic bone when she lays down. Hx of left sided hernia repairs. She also has a scar on the left from a fall when she was 8 where she fell on a log and wood went into her left pelvis. She does feel that when she takes a pill to reduce gas and this also helps her pain. She also chews a tums and this helps. She is a type 6 stool and she goes many times per day. Hx of 2 vaginal deliveries. PT-OP-C Subjective Start: 04/26/24 09:49 Freq: Status: Active Protocol: Document 06/27/24 08:18 SP (Rec: 06/27/24 09:07 SP [id number]) OP-PT Subjective Patient Comments Patient Comments Pt reports did have some pain this past week but tends to be when constipated and feeling heavier with her weight. She stated has had limited time in her day to do her exercises. Has performed but not routinely. She reports has dry eye and has to drink through the night but which also causes her to use the bathroom about every hour approx 4 glasses during the night. She gets about 10 hrs of sleep total and can get back to sleep quickly so feels gets quality sleep. Reports drinks approx 12 oz when drink water during day /c 4-6 during day and 3-4 at night . She stop drinking approx 3 pm. Sleeps 9pm-7am. Wake 930-10, 103--11, 1130-12, doesn't drink anymore after 3 am then awakes at 4-430. Has to stand after urinates then sit back down to complete emptying bladder. PT-OP-F Manual Assessment Start: 04/26/24 09:49 Freq: Status: Active Protocol: Document 04/26/24 09:45 [facility] (Rec: 04/26/24 13:41 [facility] [id number]) Manual Assessments Soft Tissue Assessment Soft Tissue Mobility Assessment left side abdominal wall over the descending colon and mid suprapubic fascia there is a great amount of scar tissue from previous surgeries. Tenderness is noted over the distal descending colon PT-OP-I Pelvic Floor Start: 04/26/24 09:49 Freq: Status: Active Protocol: Document 04/26/24 09:45 [facility] (Rec: 04/26/24 13:41 [facility] [id number]) Pelvic Floor Assessment Urine Pelvic Floor Surgery Yes Urinary Symptoms Falling Out Feeling/Heavy,Pain Other Urinary Symptoms PELVIC PAIN WHILE LAYING SUPINE AND IRRITATION THAT CAUSES HER TO WAKE TO VOID APPROX five times per night Leakage Size Small Leakage Cause Cough,Exercise,Sneeze Voiding Frequency ten Nocturia five Bowel Bowel Surgery Yes: ascending colon resection Bowel Symptoms Pain Other Bowel Symptoms pain in the lower left abdominal wall when laying supine Bowel Movement Frequency multiple times per day [place] Stool Chart Type 1-7 6 Pelvic Clock Pelvic Clock 12-3 Atrophy Pelvic Clock 3-6 Atrophy Pelvic Clock 6-9 Atrophy Pelvic Clock 9-12 Atrophy Prolapse Cystocele Grade 2 Contraction Ability Voluntary Contraction Moderate Voluntary Relaxation Moderate Manual Muscle Testing Left 3 Manual Muscle Testing Right 3 Manual Muscle Testing Anterior 3 Manual Muscle Testing Posterior 3 Muscle Endurance (Seconds) 6 PT-OP-J Posture/Palpation/Skin Start: 04/26/24 09:49 Freq: Status: Active Protocol: Document 04/26/24 09:45 [facility] (Rec: 04/26/24 13:41 [facility] [id number]) Palpation Assessment Location left lower abdominal wall Palpation Findings Soft Tissue Tightness, Tenderness Palpation Details tenderness over the distal descending colon, scar tissue tightness and decreased fascial mobility of the left lower abdominal wall PT-OP-Q Treatments Start: 04/26/24 09:49 Freq: Status: Active Protocol: Document 06/27/24 08:18 [facility] (Rec: 06/27/24 09:07 SP [id number]) Therapeutic Exercises Other Exercises Bladder training Other Exercise Name provided Reps/Minutes 20 min bladder training Comments Pt understanding Therapeutic Activity Therapeutic Activity Bladder training Name instructed urgency trainingand provided HO Reps/Minutes 20 min Comments Ed bladder training and completed bladder diary for urine output and fluid intake for baseline. Self-Care/Home Management Treatment Education Other Education 27 min:Time spent suggestion use of eye mask sleeping and see if support less dry eye and maybe not need to drink so often 20 oz each time during night (challenges bladder), limit water intake utilize Sustain droplets from physician for lubricating eyes , could help support bladder training and quality sleep. Discussed importance of HEP ( not performed) given previous txs to help support pelvic floor strengthening to allow decreased urine incontinence. Discussed she is drinking about 20 oz water, no coffee/ tea and gets up 4 x night early on to drink water due to dry eye discomfort. PRovided bladder diary to check baseline . PT-OP-T Assessment and Plan Start: 04/26/24 09:49 Freq: Status: Active Protocol: Document 06/27/24 08:18 [facility] (Rec: 06/27/24 09:07 SP [id number]) Physical Therapy Assessment Goals 4 Impairment Decreased pelvic floor endurance Short Term Goal (STG) Yenni is able to sustain a pelvic floor contraction in supine x 10 seconds goal met STG Duration 5 weeks Nursing Home Goal (LTG) Yenni is able to sustain a pelvic floor contraction in standing x 5 seconds 06/27/24: working toward goal: Pt able hold 3 sec. LTG Duration 12 weeks slow progression 06/27 3 Impairment nocturia with pt waking up 5 times per night to void Second Helper Goal (LTG) Yenni is able to decrease the number of voids per night to 2 or less 06/27/24: no change still 5 times per night to drink water to support dry eye and thus need use the bathroom. LTG Duration 12 weeks no progression 2 Impairment urinary stress incontinence Short Term Goal (STG) Yenni is educated on a home exercise program for pelvic floor strengthe- ing 06/27/24: pt stated hasn't beening performing her HEP as STG Duration 4 weeks Nursing Home Goal (LTG) Yenni reports a overall reduction of urinary stress incontinence 06/27/24: not see significant reduction, better understanding ex help support strength, instructed bladder diary and use eye mask an see if can get up less and progress decreased urgency. LTG Duration low progress 06/27/24 1 Impairment Yenni reports c/o pelvic pain worse with laying supine and she is unable to sleep comfortably due to this pain and reports pelvic heaviness with standing Second Helper Goal (LTG) Yenni reports she has a overall reduction in pelvic pain and sleep is no longer disturbed due to pain. 06/27/24Yenni reports this is improving and it is her bladder waking her up more now than pelvic pain at night LTG Duration 12 weeks progressing 06/27/24 Assessment Summary Assessment Pt good understanding of importance of HEP as directed reps/ sets/ time day/week to support pelvic floor strenghtening, limit drinking 3 hrs before bed time and utilize eye mask and Sustain droplets for eyes and hoping can help make a change in # times gets up at night. Provided bladder diary and bladder training HO with good understanding to support decrease urgency and incontinence changes, performance of HEP verbalized importance to see changes. Pt pleased with new hand outs and how will help support her with incontinence. Will bring back next tx. PT to update POC before next tx. Physical Therapy Plan Frequency and Duration Frequency of Treatment 1x/Week Duration of treatment (weeks) 8 Plan of Care Start Date 05/11/24 Plan of Care End Date 07/06/24 Therapeutic Interventions Therapeutic Interventions Home Exercise Program, Neuromuscular Re-education, Patient/Caregiver Education, Self-Care/Home Management,Soft Tissue Mobilization, Therapeutic Exercises Modalities Biofeedback Next Visit Focus/Plan Next Note Type Treatment Note Next Visit Plan Update POC before next t. Check on Yenni in the urge deference technique and bladder retraining per hand out, review exercises next visit. Future PT tx: Assess abdominal wall discomfort and MFR technqiques over the lower left abdominal wall.
--- NOTE | 2024-06-30 17:38 | PT.OPPN ---
Current Diagnoses Mixed incontinence (06/27/24) Cystocele, midline (06/27/24) Pelvic muscle wasting (06/27/24) Postmenopausal atrophic vaginitis (06/27/24) Physical Therapy Progress Note PT-OP-A Visit Information Start: 04/26/24 09:49 Freq: Status: Active Protocol: Document 06/27/24 08:18 [facility] (Rec: 06/27/24 09:07 SP [id number]) Out-Patient Physical Therapy Visit Information Visit Information Visit Type Treatment Note Visit Start Time 08:18 Visit Stop Time 09:05 Visit Number 4 Number of PORT PURSER Visits 1 Evaluation Information Evaluation Date 04/26/24 PT-OP-B Current Condition Start: 04/26/24 09:49 Freq: Status: Active Protocol: Document 04/26/24 09:45 [facility] (Rec: 04/26/24 10:07 [facility] [id number]) Current Condition History of Current Condition Current Complaints pelvic pain History of Current Condition hx of colon cancer in the ascending colon and surgery in 2018 with removal of a section. and symptoms of rectocele started before then. She has had a surgery with mesh for rectocele in 2003 approx 5 months ago she had episodes of constipation lasting approx 4 days and felt as if it affected the mesh. She has discomfort right above the pubic bone when she lays down. Hx of left sided hernia repairs. She also has a scar on the left from a fall when she was 8 where she fell on a log and wood went into her left pelvis. She does feel that when she takes a pill to reduce gas and this also helps her pain. She also chews a tums and this helps. She is a type 6 stool and she goes many times per day. Hx of 2 vaginal deliveries. PT-OP-C Subjective Start: 04/26/24 09:49 Freq: Status: Active Protocol: Document 06/27/24 08:18 SP (Rec: 06/27/24 09:07 SP [id number]) OP-PT Subjective Patient Comments Patient Comments Pt reports did have some pain this past week but tends to be when constipated and feeling heavier with her weight. She stated has had limited time in her day to do her exercises. Has performed but not routinely. She reports has dry eye and has to drink through the night but which also causes her to use the bathroom about every hour approx 4 glasses during the night. She gets about 10 hrs of sleep total and can get back to sleep quickly so feels gets quality sleep. Reports drinks approx 12 oz when drink water during day /c 4-6 during day and 3-4 at night . She stop drinking approx 3 pm. Sleeps 9pm-7am. Wake 930-10, 103--11, 1130-12, doesn't drink anymore after 3 am then awakes at 4-430. Has to stand after urinates then sit back down to complete emptying bladder. PT-OP-F Manual Assessment Start: 04/26/24 09:49 Freq: Status: Active Protocol: Document 04/26/24 09:45 [facility] (Rec: 04/26/24 13:41 [facility] [id number]) Manual Assessments Soft Tissue Assessment Soft Tissue Mobility Assessment left side abdominal wall over the descending colon and mid suprapubic fascia there is a great amount of scar tissue from previous surgeries. Tenderness is noted over the distal descending colon PT-OP-I Pelvic Floor Start: 04/26/24 09:49 Freq: Status: Active Protocol: Document 04/26/24 09:45 [facility] (Rec: 04/26/24 13:41 [facility] [id number]) Pelvic Floor Assessment Urine Pelvic Floor Surgery Yes Urinary Symptoms Falling Out Feeling/Heavy,Pain Other Urinary Symptoms PELVIC PAIN WHILE LAYING SUPINE AND IRRITATION THAT CAUSES HER TO WAKE TO VOID APPROX five times per night Leakage Size Small Leakage Cause Cough,Exercise,Sneeze Voiding Frequency ten Nocturia five Bowel Bowel Surgery Yes: ascending colon resection Bowel Symptoms Pain Other Bowel Symptoms pain in the lower left abdominal wall when laying supine Bowel Movement Frequency multiple times per day [place] Stool Chart Type 1-7 6 Pelvic Clock Pelvic Clock 12-3 Atrophy Pelvic Clock 3-6 Atrophy Pelvic Clock 6-9 Atrophy Pelvic Clock 9-12 Atrophy Prolapse Cystocele Grade 2 Contraction Ability Voluntary Contraction Moderate Voluntary Relaxation Moderate Manual Muscle Testing Left 3 Manual Muscle Testing Right 3 Manual Muscle Testing Anterior 3 Manual Muscle Testing Posterior 3 Muscle Endurance (Seconds) 6 PT-OP-J Posture/Palpation/Skin Start: 04/26/24 09:49 Freq: Status: Active Protocol: Document 04/26/24 09:45 [facility] (Rec: 04/26/24 13:41 [facility] [id number]) Palpation Assessment Location left lower abdominal wall Palpation Findings Soft Tissue Tightness, Tenderness Palpation Details tenderness over the distal descending colon, scar tissue tightness and decreased fascial mobility of the left lower abdominal wall PT-OP-T Assessment and Plan Start: 04/26/24 09:49 Freq: Status: Active Protocol: Document 06/30/24 17:37 [facility] (Rec: 06/30/24 17:38 [facility] [id number]) Physical Therapy Assessment Goals 4 Impairment Decreased pelvic floor endurance Short Term Goal (STG) Yenni is able to sustain a pelvic floor contraction in supine x 10 seconds goal met STG Duration 5 weeks [facility] Goal (LTG) Yenni is able to sustain a pelvic floor contraction in standing x 5 seconds 06/27/24: working toward goal: Pt able hold 3 sec. LTG Duration 12 weeks slow progression 06/27 3 Impairment nocturia with pt waking up 5 times per night to void [facility] Goal (LTG) Yenni is able to decrease the number of voids per night to 2 or less 06/27/24: no change still 5 times per night to drink water to support dry eye and thus need use the bathroom. LTG Duration 12 weeks no progression 2 Impairment urinary stress incontinence Short Term Goal (STG) Yenni is educated on a home exercise program for pelvic floor strengthe- ing 06/27/24: pt stated hasn't beening performing her HEP as STG Duration 4 weeks Paper Rewinder Goal (LTG) Yenni reports a overall reduction of urinary stress incontinence 06/27/24: not see significant reduction, better understanding ex help support strength, instructed bladder diary and use eye mask an see if can get up less and progress decreased urgency. LTG Duration low progress 06/27/24 1 Impairment Yenni reports c/o pelvic pain worse with laying supine and she is unable to sleep comfortably due to this pain and reports pelvic heaviness with standing [facility] Goal (LTG) Yenni reports she has a overall reduction in pelvic pain and sleep is no longer disturbed due to pain. 06/27/24Yenni reports this is improving and it is her bladder waking her up more now than pelvic pain at night LTG Duration 12 weeks progressing 06/27/24 Assessment Summary Assessment Pt good understanding of importance of HEP as directed reps/ sets/ time day/week to support pelvic floor strenghtening, limit drinking 3 hrs before bed time and utilize eye mask and Sustain droplets for eyes and hoping can help make a change in # times gets up at night. Provided bladder diary and bladder training HO with good understanding to support decrease urgency and incontinence changes, performance of HEP verbalized importance to see changes. Pt pleased with new hand outs and how will help support her with incontinence. Will bring back next visit Yenni would benefit from continued PT Physical Therapy Plan Frequency and Duration Frequency of Treatment 1x/Week Duration of treatment (weeks) 8 Plan of Care Start Date 06/27/24 Plan of Care End Date 08/29/24 Therapeutic Interventions Therapeutic Interventions Home Exercise Program, Neuromuscular Re-education, Patient/Caregiver Education, Self-Care/Home Management,Soft Tissue Mobilization, Therapeutic Exercises Modalities Biofeedback Next Visit Focus/Plan Next Note Type Treatment Note Next Visit Plan Update POC before next t. Check on Yenni in the urge deference technique and bladder retraining per hand out, review exercises next visit. Future PT tx: Assess abdominal wall discomfort and MFR technqiques over the lower left abdominal wall.
--- NOTE | 2024-06-30 17:39 | PT.OPPOC ---
Physical, Occupational & Speech Therapy At [facility] Current Diagnoses Mixed incontinence (06/27/24) Cystocele, midline (06/27/24) Pelvic muscle wasting (06/27/24) Postmenopausal atrophic vaginitis (06/27/24) Visit Care Team Role Provider Type Nahed Zuniga MD Family Provider Non-Staff Primary Care Provider Specialty: Internal Medicine Address: [address] [place] [address], [phone] Email: Wilson Cardenas MD Attending Provider Non-Staff Referring Provider Specialty: Urology Address: [address] [place] [address], [id number] Email: Plan Of Care PT-OP-B Current Condition Start: 04/26/24 09:49 Freq: Status: Active Protocol: Document 04/26/24 09:45 [facility] (Rec: 04/26/24 10:07 [facility] [id number]) Current Condition History of Current Condition Current Complaints pelvic pain History of Current Condition hx of colon cancer in the ascending colon and surgery in 2018 with removal of a section. and symptoms of rectocele started before then. She has had a surgery with mesh for rectocele in 2003 approx 5 months ago she had episodes of constipation lasting approx 4 days and felt as if it affected the mesh. She has discomfort right above the pubic bone when she lays down. Hx of left sided hernia repairs. She also has a scar on the left from a fall when she was 8 where she fell on a log and wood went into her left pelvis. She does feel that when she takes a pill to reduce gas and this also helps her pain. She also chews a tums and this helps. She is a type 6 stool and she goes many times per day. Hx of 2 vaginal deliveries. PT-OP-T Assessment and Plan Start: 04/26/24 09:49 Freq: Status: Active Protocol: Document 06/30/24 17:37 [facility] (Rec: 06/30/24 17:38 [facility] [id number]) Physical Therapy Assessment Goals 4 Impairment Decreased pelvic floor endurance Short Term Goal (STG) Yenni is able to sustain a pelvic floor contraction in supine x 10 seconds goal met STG Duration 5 weeks Custodial Goal (LTG) Yenni is able to sustain a pelvic floor contraction in standing x 5 seconds 06/27/24: working toward goal: Pt able hold 3 sec. LTG Duration 12 weeks slow progression 06/27 3 Impairment nocturia with pt waking up 5 times per night to void Bicycle Fitter Goal (LTG) Yenni is able to decrease the number of voids per night to 2 or less 06/27/24: no change still 5 times per night to drink water to support dry eye and thus need use the bathroom. LTG Duration 12 weeks no progression 2 Impairment urinary stress incontinence Short Term Goal (STG) Yenni is educated on a home exercise program for pelvic floor strengthe- ing 06/27/24: pt stated hasn't been performing her HEP as STG Duration 4 weeks Bicycle Fitter Goal (LTG) Yenni reports a overall reduction of urinary stress incontinence 06/27/24: not see significant reduction, better understanding ex help support strength, instructed bladder diary and use eye mask an see if can get up less and progress decreased urgency. LTG Duration low progress 06/27/24 1 Impairment Yenni reports c/o pelvic pain worse with laying supine and she is unable to sleep comfortably due to this pain and reports pelvic heaviness with standing Bicycle Fitter Goal (LTG) Yenni reports she has a overall reduction in pelvic pain and sleep is no longer disturbed due to pain. 06/27/24Yenni reports this is improving and it is her bladder waking her up more now than pelvic pain at night LTG Duration 12 weeks progressing 06/27/24 Assessment Summary Assessment Pt good understanding of importance of HEP as directed reps/ sets/ time day/week to support pelvic floor strengthening, limit drinking 3 hrs before bed time and utilize eye mask and Sustain droplets for eyes and hoping can help make a change in # times gets up at night. Provided bladder diary and bladder training HO with good understanding to support decrease urgency and incontinence changes, performance of HEP verbalized importance to see changes. Pt pleased with new hand outs and how will help support her with incontinence. Will bring back next visit Yenni would benefit from continued PT Physical Therapy Plan Frequency and Duration Frequency of Treatment 1x/Week Duration of treatment (weeks) 8 Plan of Care Start Date 06/27/24 Plan of Care End Date 08/29/24 Therapeutic Interventions Therapeutic Interventions Home Exercise Program, Neuromuscular Re-education, Patient/Caregiver Education, Self-Care/Home Management,Soft Tissue Mobilization, Therapeutic Exercises Modalities Biofeedback Next Visit Focus/Plan Next Note Type Treatment Note Next Visit Plan Update POC before next t. Check on Yenni in the urge deference technique and bladder retraining per hand out, review exercises next visit. Future PT tx: Assess abdominal wall discomfort and MFR techniques over the lower left abdominal wall. Plan of Care Dates Plan of Care Start Date 06/27/24 Plan of Care End Date 08/29/24 Electronically Signed by: Fifi Blackman, PT 06/30/24 0522 If you are in agreement with this Plan of Care, please return a signed and dated copy. I have reviewed this Plan of Care and certify that the skilled therapy services above are required to meet the patient?s needs. Physician Signature Date Printed Name and Credentials Clinical Instructor Signature Printed Name and Credentials
--- NOTE | 2024-07-11 07:46 | PT-OP ANOTE ---
Pt did not show for today's appt. PIPELINE INTEGRITY ENGINEER called regarding importance of attendance to progress. Suggested calling our office back and scheduling tomorrow 07/12 appt with PT, currently 815 and 1030 am openings. or next available with PIPELINE INTEGRITY ENGINEER Julita or PT Fifi as POC 1x/wk. Reminded next scheduled appt 07/21 with PT, is the last scheduled appt.
--- NOTE | 2024-07-11 08:15 | PT.OTN ---
Current Diagnoses Mixed incontinence (07/11/24) Cystocele, midline (07/11/24) Pelvic muscle wasting (07/11/24) Postmenopausal atrophic vaginitis (07/11/24) Physical Therapy Treatment Note PT-OP-A Visit Information Start: 04/26/24 09:49 Freq: Status: Active Protocol: Document 07/11/24 07:53 [facility] (Rec: 07/11/24 08:18 [facility] [id number]) Out-Patient Physical Therapy Visit Information Visit Information Visit Type Treatment Note Visit Note Pt 23 min late for appt, thought appt was at 8am. Visit Start Time 07:53 Visit Stop Time 08:15 Visit Number 5 Number of NITROGLYCERIN SEPARATOR OPERATOR Visits 2 Evaluation Information Evaluation Date 04/26/24 PT-OP-B Current Condition Start: 04/26/24 09:49 Freq: Status: Active Protocol: Document 04/26/24 09:45 [facility] (Rec: 04/26/24 10:07 [facility] [id number]) Current Condition History of Current Condition Current Complaints pelvic pain History of Current Condition hx of colon cancer in the ascending colon and surgery in 2018 with removal of a section. and symptoms of rectocele started before then. She has had a surgery with mesh for rectocele in 2003 approx 5 months ago she had episodes of constipation lasting approx 4 days and felt as if it affected the mesh. She has discomfort right above the pubic bone when she lays down. Hx of left sided hernia repairs. She also has a scar on the left from a fall when she was 8 where she fell on a log and wood went into her left pelvis. She does feel that when she takes a pill to reduce gas and this also helps her pain. She also chews a tums and this helps. She is a type 6 stool and she goes many times per day. Hx of 2 vaginal deliveries. PT-OP-C Subjective Start: 04/26/24 09:49 Freq: Status: Active Protocol: Document 07/11/24 07:53 SP (Rec: 07/11/24 08:18 [facility] [id number]) OP-PT Subjective Patient Comments Patient Comments Pt reports still having alot pelvic pain but thinks is gas related. Has been doing self abdominal massage as instructed. She stated her is sick and helping him so hasn't been doing ex but wants to go over today to be sure will be doing correctly. She also stated has a Herpes Outbreak and may also be contributing to pelvic pain. She said hasn't started the bladder diary due to not sure what time to start so thought would ask today. Has a toilet measuring hat can use to calculate urine output. Pt reported wearing the eye mask at night has noticed able sleep longer by 1 hr but still 3-4 x/night. PT-OP-F Manual Assessment Start: 04/26/24 09:49 Freq: Status: Active Protocol: Document 04/26/24 09:45 [facility] (Rec: 04/26/24 13:41 [facility] [id number]) Manual Assessments Soft Tissue Assessment Soft Tissue Mobility Assessment left side abdominal wall over the descending colon and mid suprapubic fascia there is a great amount of scar tissue from previous surgeries. Tenderness is noted over the distal descending colon PT-OP-I Pelvic Floor Start: 04/26/24 09:49 Freq: Status: Active Protocol: Document 04/26/24 09:45 [facility] (Rec: 04/26/24 13:41 [facility] [id number]) Pelvic Floor Assessment Urine Pelvic Floor Surgery Yes Urinary Symptoms Falling Out Feeling/Heavy,Pain Other Urinary Symptoms PELVIC PAIN WHILE LAYING SUPINE AND IRRITATION THAT CAUSES HER TO WAKE TO VOID APPROX five times per night Leakage Size Small Leakage Cause Cough,Exercise,Sneeze Voiding Frequency ten Nocturia five Bowel Bowel Surgery Yes: ascending colon resection Bowel Symptoms Pain Other Bowel Symptoms pain in the lower left abdominal wall when laying supine Bowel Movement Frequency multiple times per day [place] Stool Chart Type 1-7 6 Pelvic Clock Pelvic Clock 12-3 Atrophy Pelvic Clock 3-6 Atrophy Pelvic Clock 6-9 Atrophy Pelvic Clock 9-12 Atrophy Prolapse Cystocele Grade 2 Contraction Ability Voluntary Contraction Moderate Voluntary Relaxation Moderate Manual Muscle Testing Left 3 Manual Muscle Testing Right 3 Manual Muscle Testing Anterior 3 Manual Muscle Testing Posterior 3 Muscle Endurance (Seconds) 6 PT-OP-J Posture/Palpation/Skin Start: 04/26/24 09:49 Freq: Status: Active Protocol: Document 04/26/24 09:45 [facility] (Rec: 04/26/24 13:41 [facility] [id number]) Palpation Assessment Location left lower abdominal wall Palpation Findings Soft Tissue Tightness, Tenderness Palpation Details tenderness over the distal descending colon, scar tissue tightness and decreased fascial mobility of the left lower abdominal wall PT-OP-Q Treatments Start: 04/26/24 09:49 Freq: Status: Active Protocol: Document 07/11/24 07:53 SP (Rec: 07/11/24 08:18 SP [id number]) Therapeutic Exercises Supine Exercises ball squeeze with bridge Equipment Used small blue ball between knees Reps/Minutes 10 reps (2x10 home) Comments cued feet closer inhibit HS cramp, slow pacing /c PF draw in <=30% hip ER with theraband Equipment Used level 3 theraband Reps/Minutes 10 reps (2x10 home) Comments cued gentle PF draw in during hip ER pelvic floor long holds Side bilateral Reps/Minutes 10 reps holding 10 seconds <> relaxing 10 seconds Comments cued gentle PF draw in sucking water up a straw- improved no LE/PPT recru Other Exercises standing chest stretch Equipment Used doorway Reps/Minutes hold 30 sec each side warrior 1 stretch Reps/Minutes holding 30 sec each side x 2 Comments cued near countertop for bal support if needed sumo squats with hip returner Other Exercise Name counter top support Reps/Minutes x 10 reps Comments cued gentle PF draw in coming to standing sit-stand with pelvic floor engagement Reps/Minutes x 10 reps Comments cues to engage TA and pelvic floor on the way up Self-Care/Home Management Treatment Education Patient Education Home Exercise Program Other Education 2 min: Bladder diary, Discussed pick a time to start then log when eat, drink how much, urine output measure use hat and seconds long takes to empty bladder as well as if having urgency what grade. DIscussed not drinking water when wakes up, just utilize Sustain drops in eye to lubricate and see if helps lessen frequency of waking up. Reviewed HEP previously HEP with ed for importance of peforming to allow pelvic floor strengthening. PT-OP-T Assessment and Plan Start: 04/26/24 09:49 Freq: Status: Active Protocol: Document 07/11/24 07:53 SP (Rec: 07/11/24 08:18 SP [id number]) Physical Therapy Assessment Goals 4 Impairment Decreased pelvic floor endurance Short Term Goal (STG) Yenni is able to sustain a pelvic floor contraction in supine x 10 seconds goal met STG Duration 5 weeks Waste Recycler Goal (LTG) Yenni is able to sustain a pelvic floor contraction in standing x 5 seconds 06/27/24: working toward goal: Pt able hold 3 sec. LTG Duration 12 weeks slow progression 06/27 3 Impairment nocturia with pt waking up 5 times per night to void Residential Goal (LTG) Yenni is able to decrease the number of voids per night to 2 or less 06/27/24: no change still 5 times per night to drink water to support dry eye and thus need use the bathroom. LTG Duration 12 weeks no progression 2 Impairment urinary stress incontinence Short Term Goal (STG) Yenni is educated on a home exercise program for pelvic floor strengthe- ing 06/27/24: pt stated hasn't beening performing her HEP as STG Duration 4 weeks Residential Goal (LTG) Yenni reports a overall reduction of urinary stress incontinence 06/27/24: not see significant reduction, better understanding ex help support strength, instructed bladder diary and use eye mask an see if can get up less and progress decreased urgency. LTG Duration low progress 06/27/24 1 Impairment Yenni reports c/o pelvic pain worse with laying supine and she is unable to sleep comfortably due to this pain and reports pelvic heaviness with standing Waste Recycler Goal (LTG) Yenni reports she has a overall reduction in pelvic pain and sleep is no longer disturbed due to pain. 06/27/24Yenni reports this is improving and it is her bladder waking her up more now than pelvic pain at night LTG Duration 12 weeks progressing 06/27/24 Assessment Summary Assessment Pt 23 min late for appt. Tx focused on instruction and proper logging of bladder diary and performance HEP review with education importance if continue to perform home for carryover support reduction urgency incontinence. Suggested decreased liquid intake when wakes up during the night, just apply eye drops Dr prescribed and use eye mask to support eye lubrication. Pt still waking up 3-4x/night but 1 hr longer between. Physical Therapy Plan Frequency and Duration Frequency of Treatment 1x/Week Duration of treatment (weeks) 8 Plan of Care Start Date 06/27/24 Plan of Care End Date 08/29/24 Therapeutic Interventions Therapeutic Interventions Home Exercise Program, Neuromuscular Re-education, Patient/Caregiver Education, Self-Care/Home Management,Soft Tissue Mobilization, Therapeutic Exercises Modalities Biofeedback Next Visit Focus/Plan Next Note Type Treatment Note Next Visit Plan Check on Yenni pelvic pain, urge deference technique and bladder retraining per hand out brings in, review exercises. Future PT tx: Assess abdominal wall discomfort and MFR technqiques over the lower left abdominal wall.
--- NOTE | 2024-07-21 16:26 | PT.OTN ---
Current Diagnoses Mixed incontinence (07/21/24) Cystocele, midline (07/21/24) Pelvic muscle wasting (07/21/24) Postmenopausal atrophic vaginitis (07/21/24) Physical Therapy Treatment Note PT-OP-A Visit Information Start: 04/26/24 09:49 Freq: Status: Active Protocol: Document 07/21/24 08:16 [facility] (Rec: 07/21/24 09:02 [facility] [id number]) Out-Patient Physical Therapy Visit Information Visit Information Visit Type Treatment Note Visit Start Time 08:15 Visit Stop Time 09:00 Visit Number 6 Number of PROFESSIONAL HOUSING CONSULTANT Visits 0 PT-OP-B Current Condition Start: 04/26/24 09:49 Freq: Status: Active Protocol: Document 04/26/24 09:45 [facility] (Rec: 04/26/24 10:07 [facility] [id number]) Current Condition History of Current Condition Current Complaints pelvic pain History of Current Condition hx of colon cancer in the ascending colon and surgery in 2018 with removal of a section. and symptoms of rectocele started before then. She has had a surgery with mesh for rectocele in 2003 approx 5 months ago she had episodes of constipation lasting approx 4 days and felt as if it affected the mesh. She has discomfort right above the pubic bone when she lays down. Hx of left sided hernia repairs. She also has a scar on the left from a fall when she was 8 where she fell on a log and wood went into her left pelvis. She does feel that when she takes a pill to reduce gas and this also helps her pain. She also chews a tums and this helps. She is a type 6 stool and she goes many times per day. Hx of 2 vaginal deliveries. PT-OP-C Subjective Start: 04/26/24 09:49 Freq: Status: Active Protocol: Document 07/21/24 08:16 [facility] (Rec: 07/21/24 09:02 [facility] [id number]) OP-PT Subjective Patient Comments Patient Comments pt reports she only gets up 1- 2 times per night now as she is wearing a sleeping mask. She reports the massage helps her too and pain significantly reduced. She would like to continue PT for a few additional visits for scar tissue and fascial release of the abdominal wall Patient Reported Progress Improving PT-OP-F Manual Assessment Start: 04/26/24 09:49 Freq: Status: Active Protocol: Document 04/26/24 09:45 [facility] (Rec: 04/26/24 13:41 [facility] [id number]) Manual Assessments Soft Tissue Assessment Soft Tissue Mobility Assessment left side abdominal wall over the descending colon and mid suprapubic fascia there is a great amount of scar tissue from previous surgeries. Tenderness is noted over the distal descending colon PT-OP-I Pelvic Floor Start: 04/26/24 09:49 Freq: Status: Active Protocol: Document 04/26/24 09:45 [facility] (Rec: 04/26/24 13:41 [facility] [id number]) Pelvic Floor Assessment Urine Pelvic Floor Surgery Yes Urinary Symptoms Falling Out Feeling/Heavy,Pain Other Urinary Symptoms PELVIC PAIN WHILE LAYING SUPINE AND IRRITATION THAT CAUSES HER TO WAKE TO VOID APPROX five times per night Leakage Size Small Leakage Cause Cough,Exercise,Sneeze Voiding Frequency ten Nocturia five Bowel Bowel Surgery Yes: ascending colon resection Bowel Symptoms Pain Other Bowel Symptoms pain in the lower left abdominal wall when laying supine Bowel Movement Frequency multiple times per day [place] Stool Chart Type 1-7 6 Pelvic Clock Pelvic Clock 12-3 Atrophy Pelvic Clock 3-6 Atrophy Pelvic Clock 6-9 Atrophy Pelvic Clock 9-12 Atrophy Prolapse Cystocele Grade 2 Contraction Ability Voluntary Contraction Moderate Voluntary Relaxation Moderate Manual Muscle Testing Left 3 Manual Muscle Testing Right 3 Manual Muscle Testing Anterior 3 Manual Muscle Testing Posterior 3 Muscle Endurance (Seconds) 6 PT-OP-J Posture/Palpation/Skin Start: 04/26/24 09:49 Freq: Status: Active Protocol: Document 04/26/24 09:45 [facility] (Rec: 04/26/24 13:41 [facility] [id number]) Palpation Assessment Location left lower abdominal wall Palpation Findings Soft Tissue Tightness, Tenderness Palpation Details tenderness over the distal descending colon, scar tissue tightness and decreased fascial mobility of the left lower abdominal wall PT-OP-Q Treatments Start: 04/26/24 09:49 Freq: Status: Active Protocol: Document 07/21/24 08:16 [facility] (Rec: 07/21/24 09:02 [facility] [id number]) Therapeutic Exercises Supine Exercises ball squeeze with bridge Equipment Used small blue ball between knees Reps/Minutes 10 reps (2x10 home) Comments cued feet closer inhibit HS cramp, slow pacing /c PF draw in <=30% hip ER with theraband Equipment Used level 3 theraband Reps/Minutes 10 reps (2x10 home) Comments cued gentle PF draw in during hip ER pelvic floor long holds Side bilateral Reps/Minutes 10 reps holding 10 seconds <> relaxing 10 seconds Comments cued gentle PF draw in sucking water up a straw- improved no LE/PPT recru Other Exercises Bladder training Other Exercise Name provided Reps/Minutes 20 min bladder training Comments Pt understanding standing chest stretch Equipment Used doorway Reps/Minutes hold 30 sec each side warrior 1 stretch Reps/Minutes holding 30 sec each side x 2 Comments cued near countertop for bal support if needed sumo squats with hip test and turn up technician Other Exercise Name counter top support Reps/Minutes x 10 reps Comments cued gentle PF draw in coming to standing sit-stand with pelvic floor engagement Reps/Minutes x 10 reps Comments cues to engage TA and pelvic floor on the way up standing squats at counter top Reps/Minutes 2 x 10 reps Manual Therapy Treatment Soft Tissue Mobilization scar tissue massage over the central and left abdominal wall Intensity/Depth Moderate Body Position Supine Comments worked on scar tissue massage over the left and central abdominal wall and educated pt in self scar tissue mobilization MFR over the descending colon Mobilization Type Myofascial Release Intensity/Depth Superficial Body Position Hooklying PT-OP-T Assessment and Plan Start: 04/26/24 09:49 Freq: Status: Active Protocol: Document 07/21/24 08:16 [facility] (Rec: 07/21/24 09:02 [facility] [id number]) Physical Therapy Assessment Goals 4 Impairment Decreased pelvic floor endurance Short Term Goal (STG) Yenni is able to sustain a pelvic floor contraction in supine x 10 seconds goal met STG Duration 5 weeks Chief Port Director Goal (LTG) Yenni is able to sustain a pelvic floor contraction in standing x 5 seconds 06/27/24: working toward goal: Pt able hold 3 sec. LTG Duration 8 weeks 3 Impairment nocturia with pt waking up 5 times per night to void Chief Port Director Goal (LTG) Yenni is able to decrease the number of voids per night to 2 or less 07/21/24 goal met as pt is now voiding 1-2 times per night LTG Duration goal met 2 Impairment urinary stress incontinence Short Term Goal (STG) Yenni is educated on a home exercise program for pelvic floor strengthe- ing 06/27/24: pt stated hasn't beening performing her HEP as STG Duration 4 weeks Chief Port Director Goal (LTG) Yenni reports a overall reduction of urinary stress incontinence 06/27/24: not see significant reduction, better understanding ex help support strength, instructed bladder diary and use eye mask an see if can get up less and progress decreased urgency. 07/21/24 Yenni reports she is no longer experiencing urinary leakage GOAL MET LTG Duration low progress 06/27/24 1 Impairment Yenni reports c/o pelvic pain worse with laying supine and she is unable to sleep comfortably due to this pain and reports pelvic heaviness with standing Chief Port Director Goal (LTG) Yenni reports she has a overall reduction in pelvic pain and sleep is no longer disturbed due to pain. 07/21/24 Jose Manuel reports a overall reduction in pelvic pain and notes the abdominal fascial work helps to decrease pain LTG Duration 8 weeks Assessment Summary Assessment Yenni has made great progress towards her goals. She is now only waking 1-2 times per night to void and is no longer experiencing the leakage throughout the day. She reports a overall reduction in pelvic pain and feels the manual fascial release technques are really helping her. She would benefit from continued PT Physical Therapy Plan Frequency and Duration Frequency of Treatment 1x/Week Duration of treatment (weeks) 8 Plan of Care Start Date 07/21/24 Plan of Care End Date 09/15/24 Therapeutic Interventions Therapeutic Interventions Home Exercise Program, Neuromuscular Re-education, Patient/Caregiver Education, Self-Care/Home Management,Soft Tissue Mobilization, Therapeutic Exercises Modalities Biofeedback Next Visit Focus/Plan Next Note Type Treatment Note Next Visit Plan Work on scar tissue and fascial release for the suprapubic and lower abdominal fascia
--- NOTE | 2024-07-21 16:26 | PT.OPPOC ---
Physical, Occupational & Speech Therapy At [facility] Current Diagnoses Mixed incontinence (07/21/24) Cystocele, midline (07/21/24) Pelvic muscle wasting (07/21/24) Postmenopausal atrophic vaginitis (07/21/24) Visit Care Team Role Provider Type Nahed Zuniga MD Family Provider Non-Staff Primary Care Provider Specialty: Internal Medicine Address: [address] [place] [address], [phone] Email: Wilson Cardenas MD Attending Provider Non-Staff Referring Provider Specialty: Urology Address: [address] [place] [address], [phone] Email: Plan Of Care PT-OP-B Current Condition Start: 04/26/24 09:49 Freq: Status: Active Protocol: Document 04/26/24 09:45 [facility] (Rec: 04/26/24 10:07 [facility] [id number]) Current Condition History of Current Condition Current Complaints pelvic pain History of Current Condition hx of colon cancer in the ascending colon and surgery in 2018 with removal of a section. and symptoms of rectocele started before then. She has had a surgery with mesh for rectocele in 2003 approx 5 months ago she had episodes of constipation lasting approx 4 days and felt as if it affected the mesh. She has discomfort right above the pubic bone when she lays down. Hx of left sided hernia repairs. She also has a scar on the left from a fall when she was 8 where she fell on a log and wood went into her left pelvis. She does feel that when she takes a pill to reduce gas and this also helps her pain. She also chews a tums and this helps. She is a type 6 stool and she goes many times per day. Hx of 2 vaginal deliveries. PT-OP-T Assessment and Plan Start: 04/26/24 09:49 Freq: Status: Active Protocol: Document 07/21/24 08:16 [facility] (Rec: 07/21/24 09:02 AMH [id number]) Physical Therapy Assessment Goals 4 Impairment Decreased pelvic floor endurance Short Term Goal (STG) Yenni is able to sustain a pelvic floor contraction in supine x 10 seconds goal met STG Duration 5 weeks Custodial Goal (LTG) Yenni is able to sustain a pelvic floor contraction in standing x 5 seconds 06/27/24: working toward goal: Pt able hold 3 sec. LTG Duration 8 weeks 3 Impairment nocturia with pt waking up 5 times per night to void Custodial Goal (LTG) Yenni is able to decrease the number of voids per night to 2 or less 07/21/24 goal met as pt is now voiding 1-2 times per night LTG Duration goal met 2 Impairment urinary stress incontinence Short Term Goal (STG) Yenni is educated on a home exercise program for pelvic floor strengthe- ing 06/27/24: pt stated hasn't beening performing her HEP as STG Duration 4 weeks Custodial Goal (LTG) Yenni reports a overall reduction of urinary stress incontinence 06/27/24: not see significant reduction, better understanding ex help support strength, instructed bladder diary and use eye mask an see if can get up less and progress decreased urgency. 07/21/24 Yenni reports she is no longer experiencing urinary leakage GOAL MET LTG Duration low progress 06/27/24 1 Impairment Yenni reports c/o pelvic pain worse with laying supine and she is unable to sleep comfortably due to this pain and reports pelvic heaviness with standing Custodial Goal (LTG) Yenni reports she has a overall reduction in pelvic pain and sleep is no longer disturbed due to pain. 07/21/24 Jose Manuel reports a overall reduction in pelvic pain and notes the abdominal fascial work helps to decrease pain LTG Duration 8 weeks Assessment Summary Assessment Yenni has made great progress towards her goals. She is now only waking 1-2 times per night to void and is no longer experiencing the leakage throughout the day. She reports a overall reduction in pelvic pain and feels the manual fascial release techniques are really helping her. She would benefit from continued PT Physical Therapy Plan Frequency and Duration Frequency of Treatment 1x/Week Duration of treatment (weeks) 8 Plan of Care Start Date 07/21/24 Plan of Care End Date 09/15/24 Therapeutic Interventions Therapeutic Interventions Home Exercise Program, Neuromuscular Re-education, Patient/Caregiver Education, Self-Care/Home Management,Soft Tissue Mobilization, Therapeutic Exercises Modalities Biofeedback Next Visit Focus/Plan Next Note Type Treatment Note Next Visit Plan Work on scar tissue and fascial release for the suprapubic and lower abdominal fascia Plan of Care Dates Plan of Care Start Date 07/21/24 Plan of Care End Date 09/15/24 Electronically Signed by: Fifi Blackman, PT 07/21/24 [id number] If you are in agreement with this Plan of Care, please return a signed and dated copy. I have reviewed this Plan of Care and certify that the skilled therapy services above are required to meet the patient?s needs. Physician Signature Date Printed Name and Credentials Clinical Instructor Signature Printed Name and Credentials
--- NOTE | 2024-08-08 12:03 | PT.OTN ---
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 and symptoms of rectocele started before then. She has had a surgery with mesh for rectocele in 2003 approx 5 months ago she had episodes of constipation lasting approx 4 days and felt as if it affected the mesh. She has discomfort right above the pubic bone when she lays down. Hx of left sided hernia repairs. She also has a scar on the left from a fall when she was 8 where she fell on a log and wood went into her left pelvis. She does feel that when she takes a pill to reduce gas and this also helps her pain. She also chews a tums and this helps. She is a type 6 stool and she goes many times per day. Hx of 2 vaginal deliveries. PT-OP-C Subjective Start: 04/26/24 09:49 Freq: Status: Active Protocol: Document 08/08/24 11:20 SP (Rec: 08/08/24 12:19 SP [id number]) OP-PT Subjective Patient Comments Patient Comments Pt states still waking up 3-4x /night. Not drinking when wakes up, using Sustain eye drops to help lubricate eyes. reports did the exercises PT-OP-F Manual Assessment Start: 04/26/24 09:49 Freq: Status: Active Protocol: Document 04/26/24 09:45 AM[facility] (Rec: 04/26/24 13:41 AMH [id number]) Manual Assessments Soft Tissue Assessment Soft Tissue Mobility Assessment left side abdominal wall over the descending colon and mid suprapubic fascia there is a great amount of scar tissue from previous surgeries. Tenderness is noted over the distal descending colon PT-OP-I Pelvic Floor Start: 04/26/24 09:49 Freq: Status: Active Protocol: Document 04/26/24 09:45 AM[facility] (Rec: 04/26/24 13:41 [facility] [id number]) Pelvic Floor Assessment Urine Pelvic Floor Surgery Yes Urinary Symptoms Falling Out Feeling/Heavy,Pain Other Urinary Symptoms PELVIC PAIN WHILE LAYING SUPINE AND IRRITATION THAT CAUSES HER TO WAKE TO VOID APPROX five times per night Leakage Size Small Leakage Cause Cough,Exercise,Sneeze Voiding Frequency ten Nocturia five Bowel Bowel Surgery Yes: ascending colon resection Bowel Symptoms Pain Other Bowel Symptoms pain in the lower left abdominal wall when laying supine Bowel Movement Frequency multiple times per day [place] Stool Chart Type 1-7 6 Pelvic Clock Pelvic Clock 12-3 Atrophy Pelvic Clock 3-6 Atrophy Pelvic Clock 6-9 Atrophy Pelvic Clock 9-12 Atrophy Prolapse Cystocele Grade 2 Contraction Ability Voluntary Contraction Moderate Voluntary Relaxation Moderate Manual Muscle Testing Left 3 Manual Muscle Testing Right 3 Manual Muscle Testing Anterior 3 Manual Muscle Testing Posterior 3 Muscle Endurance (Seconds) 6 PT-OP-J Posture/Palpation/Skin Start: 04/26/24 09:49 Freq: Status: Active Protocol: Document 04/26/24 09:45 AMH (Rec: 04/26/24 13:41 AMH [id number]) Palpation Assessment Location left lower abdominal wall Palpation Findings Soft Tissue Tightness, Tenderness Palpation Details tenderness over the distal descending colon, scar tissue tightness and decreased fascial mobility of the left lower abdominal wall PT-OP-Q Treatments Start: 04/26/24 09:49 Freq: Status: Active Protocol: Document 08/08/24 11:20 SP (Rec: 08/08/24 12:19 SP [id number]) Therapeutic Exercises Supine Exercises modified Ritesh stretch Supine Exercise Name trialed in PT- hold 08/08 Resistance thigh on table Reps/Minutes 2 x10 sec Comments to aggressive on hip flexor leg lengthener stretch Supine Exercise Name trialed and added to HEP Side bilateral Equipment Used leg straight press away Reps/Minutes 2x 30 each LE Comments cued gentle press away /c breathing- lessened tension hip ER with theraband Supine Exercise Name clamshell Equipment Used level 3 theraband at thighs, knees bent Reps/Minutes 10 reps (2x10 home) Comments cued gentle PF draw (sucking water up in side feeling) in during hip ER Manual Therapy Treatment Soft Tissue Mobilization scar tissue massage over the central and left abdominal wall Mobilization Type Myofascial Release Intensity/Depth Moderate Body Position Supine Comments worked on scar tissue massage over the left and central abdominal wall and educated pt in self scar tissue mobilization MFR over the descending colon Mobilization Type Myofascial Release Intensity/Depth Superficial Body Position Hooklying PT-OP-T Assessment and Plan Start: 04/26/24 09:49 Freq: Status: Active Protocol: Document 08/08/24 11:20 SP (Rec: 08/08/24 12:19 SP [id number]) Physical Therapy Assessment Goals 4 Impairment Decreased pelvic floor endurance Short Term Goal (STG) Yenni is able to sustain a pelvic floor contraction in supine x 10 seconds goal met STG Duration 5 weeks Assistant Administrator Goal (LTG) Yenni is able to sustain a pelvic floor contraction in standing x 5 seconds 06/27/24: working toward goal: Pt able hold 3 sec. LTG Duration 8 weeks 3 Impairment nocturia with pt waking up 5 times per night to void Assistant Administrator Goal (LTG) Yenni is able to decrease the number of voids per night to 2 or less 07/21/24 goal met as pt is now voiding 1-2 times per night LTG Duration goal met 2 Impairment urinary stress incontinence Short Term Goal (STG) Yenni is educated on a home exercise program for pelvic floor strengthe- ing 06/27/24: pt stated hasn't beening performing her HEP as STG Duration 4 weeks Mcfp Goal (LTG) Yenni reports a overall reduction of urinary stress incontinence 06/27/24: not see significant reduction, better understanding ex help support strength, instructed bladder diary and use eye mask an see if can get up less and progress decreased urgency. 07/21/24 Yenni reports she is no longer experiencing urinary leakage GOAL MET LTG Duration low progress 06/27/24 1 Impairment Yenni reports c/o pelvic pain worse with laying supine and she is unable to sleep comfortably due to this pain and reports pelvic heaviness with standing Assistant Administrator Goal (LTG) Yenni reports she has a overall reduction in pelvic pain and sleep is no longer disturbed due to pain. 07/21/24 Jose Manuel reports a overall reduction in pelvic pain and notes the abdominal fascial work helps to decrease pain LTG Duration 8 weeks Assessment Summary Assessment Pt reports sensitive to pressure, better with more broad glide tolerated /c ed self application for MFR glide mobility. Improved less tension/pain after. Introduced leg lengthener to HEP for hip flexor stretch and mobility. Trialed modified Ritesh stretch with thigh supported but not tolerated. Good demonstration resisted clamshell HEP, tiring effort. Physical Therapy Plan Frequency and Duration Frequency of Treatment 1x/Week Duration of treatment (weeks) 8 Plan of Care Start Date 07/21/24 Plan of Care End Date 09/15/24 Therapeutic Interventions Therapeutic Interventions Home Exercise Program, Neuromuscular Re-education, Patient/Caregiver Education, Self-Care/Home Management,Soft Tissue Mobilization, Therapeutic Exercises Modalities Biofeedback Next Visit Focus/Plan Next Note Type Treatment Note Next Visit Plan REcheck leg lengthener added last tx post manual. POC: Work on scar tissue and fascial release for the suprapubic and lower abdominal fascia
--- NOTE | 2024-08-18 09:59 | PT.OTN ---
Current Diagnoses Mixed incontinence (08/18/24) Cystocele, midline (08/18/24) Pelvic muscle wasting (08/18/24) Postmenopausal atrophic vaginitis (08/18/24) Physical Therapy Treatment Note PT-OP-A Visit Information Start: 04/26/24 09:49 Freq: Status: Active Protocol: Document 08/18/24 09:58 AMH (Rec: 08/18/24 09:59 AMH [id number]) Out-Patient Physical Therapy Visit Information Visit Information Visit Type Treatment Note Visit Start Time 09:00 Visit Stop Time 09:45 Visit Number 8 PT-OP-B Current Condition Start: 04/26/24 09:49 Freq: Status: Active Protocol: Document 04/26/24 09:45 AMH (Rec: 04/26/24 10:07 AMH [id number]) Current Condition History of Current Condition Current Complaints pelvic pain History of Current Condition hx of colon cancer in the ascending colon and surgery in 2018 with removal of a section. and symptoms of rectocele started before then. She has had a surgery with mesh for rectocele in 2003 approx 5 months ago she had episodes of constipation lasting approx 4 days and felt as if it affected the mesh. She has discomfort right above the pubic bone when she lays down. Hx of left sided hernia repairs. She also has a scar on the left from a fall when she was 8 where she fell on a log and wood went into her left pelvis. She does feel that when she takes a pill to reduce gas and this also helps her pain. She also chews a tums and this helps. She is a type 6 stool and she goes many times per day. Hx of 2 vaginal deliveries. PT-OP-C Subjective Start: 04/26/24 09:49 Freq: Status: Active Protocol: Document 08/18/24 09:04 AMH (Rec: 08/18/24 09:58 AMH [id number]) OP-PT Subjective Patient Comments Patient Comments pt notes that she is doing better overall and she feels that today can be her last PT visit. PT-OP-F Manual Assessment Start: 04/26/24 09:49 Freq: Status: Active Protocol: Document 04/26/24 09:45 AMH (Rec: 04/26/24 13:41 AMH [id number]) Manual Assessments Soft Tissue Assessment Soft Tissue Mobility Assessment left side abdominal wall over the descending colon and mid suprapubic fascia there is a great amount of scar tissue from previous surgeries. Tenderness is noted over the distal descending colon PT-OP-I Pelvic Floor Start: 04/26/24 09:49 Freq: Status: Active Protocol: Document 04/26/24 09:45 AMH (Rec: 04/26/24 13:41 [facility] [id number]) Pelvic Floor Assessment Urine Pelvic Floor Surgery Yes Urinary Symptoms Falling Out Feeling/Heavy,Pain Other Urinary Symptoms PELVIC PAIN WHILE LAYING SUPINE AND IRRITATION THAT CAUSES HER TO WAKE TO VOID APPROX five times per night Leakage Size Small Leakage Cause Cough,Exercise,Sneeze Voiding Frequency ten Nocturia five Bowel Bowel Surgery Yes: ascending colon resection Bowel Symptoms Pain Other Bowel Symptoms pain in the lower left abdominal wall when laying supine Bowel Movement Frequency multiple times per day [place] Stool Chart Type 1-7 6 Pelvic Clock Pelvic Clock 12-3 Atrophy Pelvic Clock 3-6 Atrophy Pelvic Clock 6-9 Atrophy Pelvic Clock 9-12 Atrophy Prolapse Cystocele Grade 2 Contraction Ability Voluntary Contraction Moderate Voluntary Relaxation Moderate Manual Muscle Testing Left 3 Manual Muscle Testing Right 3 Manual Muscle Testing Anterior 3 Manual Muscle Testing Posterior 3 Muscle Endurance (Seconds) 6 PT-OP-J Posture/Palpation/Skin Start: 04/26/24 09:49 Freq: Status: Active Protocol: Document 04/26/24 09:45 [facility] (Rec: 04/26/24 13:41 [facility] [id number]) Palpation Assessment Location left lower abdominal wall Palpation Findings Soft Tissue Tightness, Tenderness Palpation Details tenderness over the distal descending colon, scar tissue tightness and decreased fascial mobility of the left lower abdominal wall PT-OP-Q Treatments Start: 04/26/24 09:49 Freq: Status: Active Protocol: Document 08/18/24 09:04 [facility] (Rec: 08/18/24 09:58 [facility] [id number]) Therapeutic Exercises Supine Exercises leg lengthener stretch Equipment Used leg straight press away Comments pt notes she is better able to do this stretch ball squeeze with bridge Equipment Used small blue ball between knees Reps/Minutes 10 reps (2x10 home) Comments cued feet closer inhibit HS cramp, slow pacing /c PF draw in <=30% hip ER with theraband Supine Exercise Name clamshell Equipment Used level 3 theraband at thighs, knees bent Reps/Minutes 10 reps (2x10 home) Comments cued gentle PF draw (sucking water up in side feeling) in during hip ER pelvic floor long holds Side bilateral Reps/Minutes 10 reps holding 10 seconds <> relaxing 10 seconds Comments cued gentle PF draw in sucking water up a straw- improved no LE/PPT recru PT-OP-T Assessment and Plan Start: 04/26/24 09:49 Freq: Status: Active Protocol: Document 08/18/24 09:04 [facility] (Rec: 08/18/24 09:58 [facility] [id number]) Physical Therapy Assessment Goals 4 Impairment Decreased pelvic floor endurance Short Term Goal (STG) Yenni is able to sustain a pelvic floor contraction in supine x 10 seconds goal met STG Duration 5 weeks Machining Engineer Goal (LTG) Yenni is able to sustain a pelvic floor contraction in standing x 5 seconds 08/18/24 : working toward goal: LTG Duration 8 weeks 3 Impairment nocturia with pt waking up 5 times per night to void Machining Engineer Goal (LTG) Yenni is able to decrease the number of voids per night to 2 or less 07/21/24 goal met as pt is now voiding 1-2 times per night LTG Duration goal met 2 Impairment urinary stress incontinence Short Term Goal (STG) Yenni is educated on a home exercise program for pelvic floor strengthening 08/18/24 : goal met STG Duration 4 weeks Machining Engineer Goal (LTG) Yenni reports a overall reduction of urinary stress incontinence 06/27/24: not see significant reduction, better understanding ex help support strength, instructed bladder diary and use eye mask an see if can get up less and progress decreased urgency. 07/21/24 Yenni reports she is no longer experiencing urinary leakage GOAL MET LTG Duration goal met 1 Impairment Yenni reports c/o pelvic pain worse with laying supine and she is unable to sleep comfortably due to this pain and reports pelvic heaviness with standing Retirement Goal (LTG) Yenni reports she has a overall reduction in pelvic pain and sleep is no longer disturbed due to pain. 07/21/24 Jose Manuel reports a overall reduction in pelvic pain and notes the abdominal fascial work helps to decrease pain LTG Duration 8 weeks Assessment Summary Assessment Yenni has been doing better overall and is feeling independent with her home program at this time. She will be discharged to a [facility] Physical Therapy Plan Frequency and Duration Frequency of Treatment 1x/Week Duration of treatment (weeks) 8 Plan of Care Start Date 07/21/24 Plan of Care End Date 09/15/24 Discharge Physical Therapy Discharge Reasons Goals Met
== END 2024-08-23 12:54 | disposition home or self-care (01) ==
LOC: PHYS 09:00
PROVIDERS: Family Provider Internal Medicine; PCP Internal Medicine; Referring Provider Urology; Visit Provider Urology
DX: N39.46 Mixed incontinence (principal); N81.11 Cystocele, midline; N95.2 Postmenopausal atrophic vaginitis; N81.84 Pelvic muscle wasting
CPT/HCPCS: 97110; 97140; 97161; 97530; 97535